=== PATIENT | male | born 1940 | race Caucasian/White ===

== ENCOUNTER 2018-03-17 06:55 | Inpatient (IN) | payer BC ==
[~2018-03-17 06:55] MED LIST: CEFAZOLIN 2 Gram 2 GM/50 ML BAG IVPB ONE; CELECOXIB 100 MG CAPSULE PO ONE; FAMOTIDINE 20MG TABLET PO ONE; MECLIZINE 25 MG TABLET PO ONE; METOCLOPRAMIDE 10 MG TABLET PO ONE; VANCOMYCIN HCL 1,000 MG in DEXTROSE 5 % IN WATER 250 ML IVPB ONE
[2018-03-17 07:53] LABS: ABO GROUP A; ANTIBODY SCREEN NEGATIVE (NEGATIVE); RH TYPE NEGATIVE
[2018-03-17] MEDS ORDERED: ONDANSETRON HCL IV 4 MG/2 ML VIAL IVP PRN (10:53)
[2018-03-17] MEDS ORDERED: BISACODYL 10 MG SUPP RC PRN (10:53)
[2018-03-17] MEDS ORDERED: DIPHENHYDRAMINE HCL 25 MG CAPSULE PO PRN (10:53)
[2018-03-17] MEDS ORDERED: ACETAMINOPHEN W/ CODEINE 300MG/30MG TABLET PO PRN (10:53)
[2018-03-17] MEDS ORDERED: NALOXONE 0.4 MG/1 ML VIAL IVP PRN (10:53)
[2018-03-17] MEDS ORDERED: HYDROMORPHONE HCL 2 MG/ML VIAL IM PRN (10:53)
[2018-03-17] MEDS ORDERED: KETOROLAC 30 MG/ML VIAL IVP PRN ×2 (10:53)
[2018-03-17] MEDS ORDERED: ACETAMINOPHEN W/ CODEINE 300MG/60MG TABLET PO PRN ×2 (10:53)
[2018-03-17] MEDS ORDERED: MAGNESIUM HYDROXIDE 30 ML UDC PO PRN (10:53)
[2018-03-17] MEDS ORDERED: ZOLPIDEM TARTRATE 5 MG TABLET PO PRN (10:53)
[2018-03-17] MEDS ORDERED: AL HYDROX/MAG HYDROX 30ML UD PO PRN (10:53)
[2018-03-17] MEDS ORDERED: HYDROCODONE/APAP 10/325 TABLET PO PRN ×2 (10:53)
[2018-03-17] MEDS: HUMULIN R 100 UNIT/ML VIAL SQ SCH ×2 (12:55→17:27)
[2018-03-17] MEDS: POTASSIUM CHLORIDE/D5-0.9%NACL 20 MEQ/1,000 ML BAG IV SCH ×2 (13:02→22:25)
[2018-03-17] MEDS ORDERED: MIDAZOLAM HCL 2MG/2ML VIAL IV ONE (14:00)
[2018-03-17] MEDS ORDERED: PROPOFOL 10 MG/ML VIAL IV ONE (14:00)
[2018-03-17] MEDS ORDERED: EPHEDRINE SULFATE 50 MG/ML ML IV ONE (14:00)
[2018-03-17] MEDS ORDERED: DIPHENHYDRAMINE HCL IV 50 MG/ML VIAL IVP ONE (14:00)
[2018-03-17] MEDS ORDERED: FENTANYL PF 100MCG/2ML VIAL IV ONE (14:00)
[2018-03-17] MEDS ORDERED: LIDOCAINE 2% MDV (20MG/ML) 20ML VIAL IV ONE (14:00)
[2018-03-17] MEDS ORDERED: HYDROMORPHONE PF 1MG/ML **AMPULE IV ONE ×2 (14:00→15:44)
[2018-03-17] MEDS ORDERED: ONDANSETRON HCL IV 4 MG/2 ML VIAL IVP ONE ×2 (14:00→16:15)
[2018-03-17] MEDS ORDERED: PHENYLEPHRINE HCL 10 MG/ML VIAL IVP ONE (14:00)
--- NOTE | 2018-03-17 15:24 | Rehab Evaluation ---
Patient Information - Patient Information Diagnosis: DJD R Knee Ordered Treatment: PT Evaluate and Treat Status: Initial Evaluation Surgery: Yes (R TKA) Date of Surgery: 03/17/18 Past Medical/Surgical Hx: PAST MEDICAL/SURGICAL HISTORY Past Surgical History bilat cats triple bypass cardiac 2013 left RTC repair left shoulder replacement 2013 melenoma right forearm lumbar sx a long time ago bilat CTR c scope PMH - Respiratory Hx Respiratory Disorders Yes Hx Asthma No Hx Bronchitis No Hx Chronic Obstructive No Pulmonary Disease (COPD) Hx Dyspnea No Hx Pneumonia No Hx Pulmonary Embolism No Hx Sleep Apnea Yes Hx Tuberculosis No Hx of CPAP Yes Hx of URI No Hx of SOB Yes: with exertion PMH - Cardiovascular Hx Cardiovascular Disorders Yes Hx Abnormal EKG Yes Hx Cardiac Catheterization Yes Hx Chest Pain No Hx Congestive Heart Failure No Hx Deep Vein Thrombosis No Hx Edema Yes: bilat LE Hx Heart Attack No: denies Hx Hypertension Yes: on meds good control Hx Hypotension No Hx Irregular Heartbeat No Hx Palpitations No Hx Pacemaker/Defibrillator No Hx Vascular Disease Yes Hx Coronary Artery Disease Yes Hx Coronary Artery Bypass Yes: triple 2013 Graft Exercise Tolerance Poor Hx Transient Ischemic Attacks No (TIA) PMH - Neuro Hx Neurological Disorders Yes Hx Brain Tumor No Hx Cerebrovascular Accident No Hx Dementia Yes: mild forgetful Hx Dizziness Yes: when standing after sitting Hx Headaches No Hx Neuropathy Yes: LE's Hx Parkinson's Disease No Hx Seizures No Hx Speech Problem No Hx Syncope No Hx Transient Ischemic Attacks No (TIA) Hx Weakness Yes: legs PMH - GI Hx Gastrointestinal Disorders Yes Hx Abdominal Pain No Hx Celiac Disease No Hx Crohn's Disease No Hx Diverticulitis No Hx Gastrointestinal Bleed No Hx Gastroesophageal Reflux No Hx Hepatitis/Jaundice No Hx Hiatal Hernia No Hx Irritable Bowel No Hx Liver Disease No Hx Nausea/Vomiting No Hx Obstructive Bowel No Hx Pancreatitis No Hx Rectal Bleeding No Hx Ulcer No Hx Weight Loss/Weight Gain No PMH - Hx Genitourinary Disorders Yes Hx Bladder Problem Yes: incontinence at night Hx Dialysis No Hx Kidney Stones No Hx Prostate Problems Yes: enlarged Hx Renal Disease No Hx Urinary Tract Infection No PMH - Endocrine Hx Endocrine Disorders Yes Hx Diabetes Yes: onset several years ago started out on orals 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 Comment: 120's - 140's A1C below 7 PMH - Musculoskeletal Hx Musculoskeletal Disorders Yes Hx Arthritis Yes Hx Back Injury No Hx Fibromyalgia No Hx Gout No Hx Musculoskeletal Disease No Hx Osteoporosis No PMH - Psych Hx Psychiatric Problems Yes Hx Anxiety No Hx Behavior Problems No Hx Depression Yes: mild Hx Emotional Abuse No Hx Sexual Abuse No Hx Suicide Attempt No Major Depressive Episode No Feelings of Hopelessness No PMH - Hematology/Oncology Hx Hematology/Oncology Yes Disorders Hx Anemia No Hx Blood Disorders No Hx Bruising No Hx Cancer Yes: melanoma right forearm Hx Chemotherapy No Hx Radiation Therapy No Hx Clotting Problems No Hx Sickle Cell Disease No Hx Unexplained Bleeding No Hx Blood Transfusion Reaction No Social History: Detail (The patient lives in a single home with his spouse, and the home has one step to enter with rails on both sides. The patient has a walk- in shower with grab bars and hand-held shower head. The toilet is elevated with grab bars. The patient stated that he has railings on each side of the toilet. The patient is using a standard walker for ambulation activities.) Precautions: [place], Other (WBAT on R) - Time With Patient Total Time Spent With Patient (Min): 30 Treatment Procedures: Detail (PT Initial Evaluation) Subjective Information - Subjective Information Per Patient (The patient has some nausea and dizziness currently. Had some reports of pain in the R LE) Objective Data - Pain Pain Present: Yes Pain Intensity: 8 (Right LE and Foot) Pain Scale Used: Numeric (1 - 10) - Mental Status Patient Orientation: Oriented x3 - ROM Not within normal limits (WNL on L LE. R Hip and Ankle. R Knee is limited as expected s/p R TKA) - Strength/Tone Not within normal limits (Within functional limits for activities completed at initial evaluation. R Knee was limited as expected s/p R TKA) - Bed Mobility Independent (The patient was independent with sit to supine and supine to sit. He required mod. assist x 2 to scoot up in bed.) - Transfers Independent (The patient was independent with sit to stand and stand to sit. The patient required supervision with transfer to and from the toilet.) - Balance Balance Sitting: Good (No LOB with sitting at the bedside.) Balance Standing: Good (Had no LOB with immediate standing at the bedside after transferring from sit to stand. Had no LOB with gait activities.) - Sensation Intact - Gait Detail (The patient was able to ambulate from the bedside to the restroom ( about 25 feet total). He was WBAT on R and used 2WW. He required supervision/ CGA x 1. Further ambulation was not completed, as stairs were not assessed.) Therapy Assessment - Therapy Assessment Detail (The patient was limited in strength and ROM in the R knee. He was independent with bed mobility and transfers, but required supervision for gait activities. Ability to ascend/descend stairs was not assessed at this time. The patient should progress well with inpatient therapy.) Problem List - Problem List Physical Therapy Problem List: Detail (1) Decreased ROM and Strength in R Knee as expected s/p R TKA 2) Unable to ambulate longer household distances 3) Ability to complete stairs not assessed) Goals - Goals Physical Therapy Goals: 1) The patient will be independent in HEP to increase ROM and strength in R Knee improve transfer and gait skills. 2) The patient will be able to ascend/descend 3 stairs with supervision to safely enter the home. 3) The patient will be able to ambulate longer household distances for increased safety in the home. Prognosis - Prognosis Good Plan - Plan Physical Therapy Plan: The patient will be seen 1-2x/day M-F for gait training and LE strengthening/ROM activities until d/c from [facility].
[2018-03-17] MEDS ORDERED: BUPIVACAINE 0.5% W/EPI MPF 30 ML VIAL IVP ONE (15:44)
[2018-03-17] MEDS ORDERED: VANCOMYCIN HCL 1 GM VIAL IVPB ONE (15:44)
[2018-03-17] MEDS ORDERED: TRANEXAMIC ACID 1,000 MG/10 ML ML IV ONE ×2 (15:44→15:48)
[2018-03-17] MEDS ORDERED: 0.9 % SODIUM CHLORIDE 10 ML VIAL IVP ONE (15:48)
[2018-03-17] MEDS: CEFAZOLIN 2 Gram 2 GM/50 ML BAG IVPB SCH (16:52)
--- NOTE | 2018-03-17 20:30 | Operative Note ---
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 PROCEDURE: Cemented right total knee arthroplasty using [employer] II components, with a size 8 cemented [place] femur, size 8 stem tibial baseplate, a 9 mm lipped tibial insert, and a 35 mm all-plastic patella. STAFF SURGEON: LATANYA HONG M.D. ANESTHESIA: SPINAL. PREPARATION: CHLORAPREP. INDIVIDUAL CONSIDERATIONS: NONE. PROCEDURE: The patient was taken to the Operating Room and placed supine on the operating table. He had the successful induction with spinal anesthetic. His right lower extremity was prepped and draped in the usual fashion. The patient had a midline approach to the knee. Sharp dissection carried down through the skin and subcutaneous tissues. Small veins were coagulated with a Bovie. The tourniquet was inflated to 250 mmHg. A medial arthrotomy was performed. The patella was everted and the knee was flexed. He had exposed bone pretty much everywhere with bone loss. The fat pad was resected, ACL was sacrificed, provisional anterior meniscectomies were performed and the capsule was released from the medial proximal tibia. The initial femoral elevator pilot hole was then made freehand. The intramedullary femoral cutting jig was placed. It was cut in 7.0 degrees of valgus and adjusted for rotation and secured with pins for a 10 mm resection. The initial transverse cut was then made. The skin guide was placed in the anterior and posterior elevator pilot holes. It was found that a size 8 would be appropriate but I needed to translate it anteriorly 2 mm. The anterior and posterior cuts were made, osteophytes were removed, and a size 8 trial was placed and found to fit well. The tibia was brought forward and the remainder of the meniscal remnants were removed with a Bovie. The extra-articular tibial cutting jig was placed. It was cut in neutral with a 3-degree AP slope. Care was taken to adjust for rotation and flexion using the extra-articular alignment guide and bony landmarks. It was set for a 9 mm resection, keyed off the high lateral side, and secured with pins. When cutting the tibia, care was taken to preserve the PCL insertion on the tibia. Osteophytes were removed and I was able to easily fit a size 8 baseplate trial. With a 9 mm trial and the femoral trial, there was excellent motion and stability, ligamentous balance, rotation, and alignment were thought to be normal. The femoral elevator pilot holes were impacted and the triflange tibial stamp was impacted and these trial components were removed. The patient had a very thick patella and roughly 9 mm of bone was removed with an oscillating saw. I could easily fit a 35 patella and the three elevator pilot holes were drilled. The tourniquet was let down to get bleeders posteriorly and then placed back up again. The knee was then thoroughly irrigated out with pulsatile Betadine and saline to remove any visual or palpable debris. Bony surfaces were then dried. A size 8 stem tibial baseplate was cemented into place, followed by impaction of a 9 mm lipped tibial insert, followed by cementing in the size 8 [place] femur, followed by cementing in the 35 mm patella. Implant surfaces were compressed, excess cement was removed, and after the cement had set, there was excellent motion and stability, ligamentous balance, rotation and alignment and patellofemoral tracking were normal. No lateral release was required. After again thorough irrigation, the tourniquet was let down and hemostasis was obtained with the Bovie. The skin and periosteum were then infiltrated with 30 mL of 0.5% Marcaine with Epinephrine. The capsule was then closed with a running #2 Quill, the subcutaneous was closed in layers with 0 Quill, and the skin was closed with carlo. The patient did receive a gram of tranexamic acid IV preoperatively. I mixed a gram of tranexamic acid with 30 mL of saline and injected it into the knee through a sterile #18 gauge needle and a sterile [place] compressive Aquacel-type dressing was applied. The patient tolerated the procedures well. Needle and sponge counts were correct. Estimated blood loss was minimal and he was taken back to Recovery in good condition. There were no complications. cc: Dr. Fei Currie JOB NUMBER: [id number] MTDD
[2018-03-17] MEDS ORDERED: METOPROLOL TART 50 MG TABLET PO SCH (22:00)
[2018-03-17] MEDS ORDERED: OXYBUTYNIN CHLORIDE 5MG TABLET PO SCH (22:00)
[2018-03-17] MEDS: SIMVASTATIN 20 MG TABLET PO SCH (22:12)
[2018-03-17] MEDS: ACETAMINOPHEN 325 MG TAB PO PRN (22:12)
[2018-03-17] MEDS: METOPROLOL TART 50 MG TABLET PO SCH (22:12)
[2018-03-17] MEDS: TAMSULOSIN HCL 0.4 MG CAP.ER.24H PO SCH (22:13)
[2018-03-17] MEDS: DULOXETINE HCL 30 MG CAPSULE.DR PO SCH (22:13)
[2018-03-17] MEDS: DOCUSATE SODIUM 100 MG CAPSULE PO SCH (22:13)
[2018-03-17] MEDS: METFORMIN 500 MG TABLET PO SCH (22:13)
[2018-03-17] MEDS: LEVEMIR FLEXTOUCH 100 UNIT/ML INSULIN PEN SQ SCH (22:15)
[2018-03-18] MEDS: CEFAZOLIN 2 Gram 2 GM/50 ML BAG IVPB SCH ×2 (01:32→08:27)
[2018-03-18 06:44] LABS: HEMATOCRIT 30.7 % (42.0-52.0); HEMOGLOBIN 9.4 gm/dl (14.0-18.0)
[2018-03-18 06:59] LABS: BLOOD UREA NITROGEN 20 mg/dL (8-23); CREATININE 0.9 mg/dL (0.7-1.2); EST GLOMERULAR FILTRATION RATE > 60 mL/min; GLUCOSE,RANDOM 149 mg/dL (74-109)
[2018-03-18] MEDS: HUMULIN R 100 UNIT/ML VIAL SQ SCH ×3 (08:15→17:42)
[2018-03-18] MEDS: POTASSIUM CHLORIDE/D5-0.9%NACL 20 MEQ/1,000 ML BAG IV SCH (08:28)
--- NOTE | 2018-03-18 09:55 | Physician Progress Note ---
Subjective - Date Date of Physician Progress Note: 03/18/18 Objective - Vital Signs Vital Signs: Vital Signs - Last 24 Hrs Temp Pulse Pulse Resp BP BP Pulse Ox 03/18/18 08:41 99.3 F 81 18 163/76 96 03/18/18 08:02 18 03/18/18 05:20 96 03/18/18 05:00 98.1 F 74 18 144/64 74 L 03/18/18 01:00 97.9 F 82 20 132/67 97 03/17/18 22:43 106 H 94 L 03/17/18 22:40 84 L 03/17/18 21:55 113 H 78 L 03/17/18 21:34 97.7 F 112 H 20 126/82 93 L 03/17/18 21:30 20 80 L 03/17/18 21:00 18 03/17/18 17:00 97.7 F 105 H 18 138/64 92 L 03/17/18 14:20 97.9 F 96 H 18 151/81 92 L 03/17/18 14:03 93 H 16 92 L 03/17/18 13:20 97.7 F 88 18 159/65 94 L 03/17/18 12:50 84 18 175/86 94 L 03/17/18 12:20 89 18 169/89 95 03/17/18 12:05 89 18 167/68 94 L 03/17/18 11:55 18 03/17/18 11:50 81 18 150/52 96 03/17/18 11:35 97.7 F 80 18 184/82 94 L Assessment and Plan - Assessment and Plan (1) Encounter for consultation Current Visit: Yes Status: Acute Base Code: Z71.9 - COUNSELING, UNSPECIFIED Comment: 03/18/18 - Dr alston requested inpt consult for pt regarding DM control and other rounding needs. _Post Op day 1 for LTKA -during the shift production supervisor, nursing reported pt to have increased confusion and O2 needs. Pulled off CPAP and required venti mask -this AM pt is on 4+ L NC, sating high 90's but drops to high 80's with activity , A&Ox4, no acute distress. Pt has diminished lung sounds, weak inspiration but stronger expiration -BNP 1530, Consulted with Dr alston and changing PO lasix to IVP 20mg BID for 2 days, return to PO day 3 -monitor output- pt req webb after inability to urinate, H/O prostate disease -monitor lytes -CXR ordered and pending -nursing staff encouraging ICS and cough/deep breathing -PT/OT at bedside assisting pt at this time -will be availabe if further assistance is needed -Dr Alston aware and approved POC Results - Labs Result Diagrams: 03/18/18 06:16 03/18/18 06:16 Labs Last 24 Hours: Laboratory Results - last 24 hr 03/17/18 03/18/18 03/18/18 17:27 06:16 06:16 Hgb 9.4 L Hct 30.7 L Sodium 140 Potassium 4.2 Chloride 103 Carbon Dioxide 25.0 Anion Gap 12.0 BUN 20 Creatinine 0.9 Estimated GFR > 60 POC Glucose 177 H Random Glucose 149 H Calcium 8.6 L NT-Pro-B Natriuret Pep 03/18/18 03/18/18 06:16 07:30 Hgb Hct Sodium Potassium Chloride Carbon Dioxide Anion Gap BUN Creatinine Estimated GFR POC Glucose 208 H Random Glucose Calcium NT-Pro-B Natriuret Pep 1530.00 H DVT/PE Assessment - Risk for VTE Risk for VTE: No Risk Level: High Risk Assessment Date: 03/18/18 (completed by Dr Alston) Risk Assessment Time: 09:55 (completed by Dr Alston) VTE Orders Placed or Will Be Placed: Yes - Active Medicaitons Current Medications: Current Medications Acetaminophen (Tylenol 325mg) 650 mg PO Q4H PRN PRN Reason: Fever GT 101/Headache Last Admin: 03/17/18 22:12 Dose: 650 mg Acetaminophen/Codeine Phosphate (Tylenol #3) 2 udtab PO Q4H PRN PRN Reason: Pain - Mild to Moderate Acetaminophen/Codeine Phosphate (Acetaminophen-Cod #4 Tablet) 1 udtab PO Q4HR PRN PRN Reason: Pain - Moderate (5-7) Acetaminophen/Codeine Phosphate (Acetaminophen-Cod #4 Tablet) 2 udtab PO Q4HR PRN PRN Reason: Pain - Severe (8-10) Hydrocodone Bitart/Acetaminophen ([place] 10mg/325mg) 2 each PO Q4H PRN PRN Reason: Pain - Mild to Moderate Hydrocodone Bitart/Acetaminophen ([place] 10mg/325mg) 1 each PO Q4H PRN PRN Reason: Pain - Mild to Moderate Al Hydroxide/Mg Hydroxide (Maalox) 30 ml PO Q6H PRN PRN Reason: Indigestion/Heartburn Aspirin (Ecotrin (Ec)) 81 mg PO DAILY [facility] Benazepril HCl (Lotensin) 40 mg PO DAILY [facility] Bisacodyl (Dulcolax) 10 mg RC DAILY PRN PRN Reason: CONSTIPATION Diphenhydramine HCl (Benadryl Capsule) 50 mg PO Q6H PRN PRN Reason: ITCHING Last Admin: 03/17/18 13:02 Dose: 50 mg Docusate Sodium (Colace) 100 mg PO BID [facility] Last Admin: 03/17/18 22:13 Dose: 100 mg Duloxetine HCl (Cymbalta) 60 mg PO DAILY [facility] Duloxetine HCl (Cymbalta) 30 mg PO QHS [facility] Last Admin: 03/17/18 22:13 Dose: 30 mg Ferrous Sulfate (Iron) 325 mg PO DAILY [facility] Furosemide (Lasix) 40 mg PO DAILY [facility] Furosemide (Lasix Iv) 20 mg IVP BIDDIUR [facility] Stop: 03/19/18 16:00 Hydrochlorothiazide (Hctz 12.5mg) 12.5 mg PO DAILY [facility] Hydromorphone HCl (Dilaudid) 2 mg IM Q3H PRN PRN Reason: Pain - Severe (8-10) Potassium Chloride/Dextrose/Sod Cl () 20 meq in 1,000 mls @ 125 mls/hr IV Q8H [facility] Last Admin: 03/18/18 08:28 Dose: 125 mls/hr Insulin Detemir (Levemir Flextouch) 35 unit SQ BID [facility] Last Admin: 03/17/18 22:15 Dose: 35 unit Insulin Human Regular (Humulin R) 0 unit SQ TIDAC [facility] PRN Reason: Protocol Last Admin: 03/18/18 08:15 Dose: 2 unit Ketorolac Tromethamine (Toradol) 15 mg IVP ONCE PRN PRN Reason: Pain - Moderate (5-7) Magnesium Hydroxide (Milk Of Magnesium) 30 ml PO DAILY PRN PRN Reason: Constipation Metformin HCl (Glucophage Ir) 1,000 mg PO BID [facility] Last Admin: 03/17/18 22:13 Dose: 1,000 mg Metoprolol Tartrate (Lopressor) 100 mg PO BID [facility] Last Admin: 03/17/18 22:12 Dose: 100 mg Naloxone HCl (Narcan) 0.4 mg IVP ONCE PRN PRN Reason: RR less then 8 or unresponsive Ondansetron HCl (Zofran) 4 mg IVP Q4H PRN PRN Reason: NAUSEA Oxybutynin Chloride (Ditropan) 10 mg PO QHS [facility] Last Admin: 03/17/18 22:13 Dose: 10 mg Potassium Chloride (Klor-Con) 10 meq PO DAILY [facility] Rivaroxaban (Xarelto) 10 mg PO Q24H [facility] Simvastatin (Zocor) 40 mg PO QHS [facility] Last Admin: 03/17/18 22:12 Dose: 40 mg Tamsulosin HCl (Flomax) 0.8 mg PO QHS [facility] Last Admin: 03/17/18 22:13 Dose: 0.8 mg Tramadol HCl (Ultram) 100 mg PO Q4H PRN PRN Reason: Pain - Mild to Moderate Vitamin D (Vitamin D3) 2,000 unit PO DAILY [facility] Zolpidem Tartrate (Ambien) 5 mg PO QHS PRN PRN Reason: INSOMNIA AMI Plan - Labs Result Diagrams: 03/18/18 06:16 03/18/18 06:16
[2018-03-18] MEDS ORDERED: METOPROLOL TART 50 MG TABLET PO SCH (10:00)
[2018-03-18] MEDS ORDERED: FUROSEMIDE 40 MG TABLET PO SCH (10:00)
--- NOTE | 2018-03-18 10:07 | Rehab Evaluation ---
Patient Information - Patient Information Diagnosis: DJD R Knee Ordered Treatment: OT Evaluate and Treat Status: Initial Evaluation Surgery: Yes (R TKA) Date of Surgery: 03/17/18 Past Medical/Surgical Hx: PAST MEDICAL/SURGICAL HISTORY Past Surgical History bilat cats triple bypass cardiac 2013 left RTC repair left shoulder replacement 2013 melenoma right forearm lumbar sx a long time ago bilat CTR c scope PMH - Respiratory Hx Respiratory Disorders Yes Hx Asthma No Hx Bronchitis No Hx Chronic Obstructive No Pulmonary Disease (COPD) Hx Dyspnea No Hx Pneumonia No Hx Pulmonary Embolism No Hx Sleep Apnea Yes Hx Tuberculosis No Hx of CPAP Yes Hx of URI No Hx of SOB Yes: with exertion PMH - Cardiovascular Hx Cardiovascular Disorders Yes Hx Abnormal EKG Yes Hx Cardiac Catheterization Yes Hx Chest Pain No Hx Congestive Heart Failure No Hx Deep Vein Thrombosis No Hx Edema Yes: bilat LE Hx Heart Attack No: denies Hx Hypertension Yes: on meds good control Hx Hypotension No Hx Irregular Heartbeat No Hx Palpitations No Hx Pacemaker/Defibrillator No Hx Vascular Disease Yes Hx Coronary Artery Disease Yes Hx Coronary Artery Bypass Yes: triple 2013 Graft Exercise Tolerance Poor Hx Transient Ischemic Attacks No (TIA) PMH - Neuro Hx Neurological Disorders Yes Hx Brain Tumor No Hx Cerebrovascular Accident No Hx Dementia Yes: mild forgetful Hx Dizziness Yes: when standing after sitting Hx Headaches No Hx Neuropathy Yes: LE's Hx Parkinson's Disease No Hx Seizures No Hx Speech Problem No Hx Syncope No Hx Transient Ischemic Attacks No (TIA) Hx Weakness Yes: legs PMH - GI Hx Gastrointestinal Disorders Yes Hx Abdominal Pain No Hx Celiac Disease No Hx Crohn's Disease No Hx Diverticulitis No Hx Gastrointestinal Bleed No Hx Gastroesophageal Reflux No Hx Hepatitis/Jaundice No Hx Hiatal Hernia No Hx Irritable Bowel No Hx Liver Disease No Hx Nausea/Vomiting No Hx Obstructive Bowel No Hx Pancreatitis No Hx Rectal Bleeding No Hx Ulcer No Hx Weight Loss/Weight Gain No PMH - Hx Genitourinary Disorders Yes Hx Bladder Problem Yes: incontinence at night Hx Dialysis No Hx Kidney Stones No Hx Prostate Problems Yes: enlarged Hx Renal Disease No Hx Urinary Tract Infection No PMH - Endocrine Hx Endocrine Disorders Yes Hx Diabetes Yes: onset several years ago started out on orals 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 Comment: 120's - 140's A1C below 7 PMH - Musculoskeletal Hx Musculoskeletal Disorders Yes Hx Arthritis Yes Hx Back Injury No Hx Fibromyalgia No Hx Gout No Hx Musculoskeletal Disease No Hx Osteoporosis No PMH - Psych Hx Psychiatric Problems Yes Hx Anxiety No Hx Behavior Problems No Hx Depression Yes: mild Hx Emotional Abuse No Hx Sexual Abuse No Hx Suicide Attempt No Major Depressive Episode No Feelings of Hopelessness No PMH - Hematology/Oncology Hx Hematology/Oncology Yes Disorders Hx Anemia No Hx Blood Disorders No Hx Bruising No Hx Cancer Yes: melanoma right forearm Hx Chemotherapy No Hx Radiation Therapy No Hx Clotting Problems No Hx Sickle Cell Disease No Hx Unexplained Bleeding No Hx Blood Transfusion Reaction No Premorbid Status: Detail (Not obtained d/t cognition.) Social History: Detail (The patient lives in a single story home with his spouse , with one step to enter and 1 hand rail. The patient has a walk-in shower with grab bars, shower chair, and hand-held shower head. The toilet is elevated with grab bars. The patient stated that he has railings on each side of the toilet. The patient is using a standard walker for ambulation activities. The pt. uses a radiation officer to assist with ADL's, and has 2 sons that live nearby to assist PRN, per pt. report.) Precautions: Trail, Other (WBAT on R. Pt. demo. mild cognitive deficits during OT eval.) - Time With Patient Total Time Spent With Patient (Min): 30 Objective Data - Pain Pain Present: Yes (07/10 pain RLE. Pt. reported nursing staff had just administered pain medication prior to eval session.) - Mental Status Patient Orientation: Person (Pt. was aware of who he was and that he was in the hospital and why. However, he demo. mild cognitive deficits AEB requiring multiple repetition of simple step directions with extra processing time provided, and STM issues.) - Visual Perception Appears within normal limits for therapeutic activities - ROM Not within normal limits (Pt. reported hx of L shd replacement. BUE AROM was poor: Shd flex approx. 100, abd 70. Pt. used extreme compensatory postures and demo. scapular weakness. In general, pt's posture has forward rounded shoulders. BUE elbow flex, ext, wrist flex, ext WFL. L sup approx. 40, pro WFL. R sup and pro WFL.) - Strength/Tone Not within normal limits (Pt. demo. BUE weakness; in general, LUE was weaker than R. MMT RUE shd flex 4/5, abd 4-/5, biceps 4/5, triceps 4-/5. LUE shd flex 4 -/5, abd 3+/5, biceps 4-/5, triceps 3+/5. Pt. demo. moderate difficulty with the ability to use BUE for support (i.e. pushing up out of bed, t/f's, etc.).) - Bed Mobility Needs Assist (Pt. required mod A x2 to transition from supine to sit, with mod VC to engage BUE for support. Bed rails were available but pt. did not use them , even with VC to use if needed.) - Transfers Needs Assist (Sit<>stand from EOB to walker mod A x2. Pt. initially demo. posterior lean, but almost lost balance forward once standing (was leaning anteriorly and required VC's to stand straight/tall).) - Balance Balance Sitting: Fair (Pt. experienced LOB x2 seated EOB without use of UE support, but was able to recover Ind.) Balance Standing: Fair (CGA while standing to prevent LOB. Pt. exhibited mild sway, but denied feeling dizzy.) - Sensation Deficit (Pt. stated he has peripheral neuropathy in BUE and feet. Numbness in Jason. hands comes and goes. Pt. reported hands have gone numb when using walker. Educ. was provided in methods to build up walker handles to prevent numbness; pt. verbalized understanding.) - ADL's/IADL's Detail (Pt. required max VC to participate in OT eval, and declined to perform functional activities, such as dressing, functional mobility to the bathroom, or toilet t/f.) Therapy Assessment - Therapy Assessment Detail (Pt. would benefit from skilled OT services during in-pt. hospital stay. Pt. would benefit from additional OT services (such as a VALERIE) to decrease fall risk, maximize safety and independence with ADL's, and improve BUE strength and AROM for functional activities. Pt. may have been under the influence of medication side-effects and/or was experiencing mild cognitive deficits.) Problem List - Problem List Physical Therapy Problem List: Detail (1) Decreased ROM and Strength in R Knee as expected s/p R TKA 2) Unable to ambulate longer household distances 3) Ability to complete stairs not assessed) Goals - Goals Physical Therapy Goals: 1) The patient will be independent in HEP to increase ROM and strength in R Knee improve transfer and gait skills. 2) The patient will be able to ascend/descend 3 stairs with supervision to safely enter the home. 3) The patient will be able to ambulate longer household distances for increased safety in the home. Occupational Therapy Goals: 1) Pt. will participate in the evaluation of at least one ADL skill. 2) Maximize BUE strength and AROM for functional activities. 3) Pt. will demo. functional mobility from EOB to toilet with SBA. Prognosis - Prognosis Good (For goals written to improve independence with functional activities and maximize safety.) Plan - Plan Physical Therapy Plan: The patient will be seen 1-2x/day M-F for gait training and LE strengthening/ROM activities until d/c from [facility]. Occupational Therapy Plan: Pt. will be seen 2-4x's/week M-F during typical business hours during his acute medical stay.
--- NOTE | 2018-03-18 10:07 | Physical Therapy Tx Note ---
Physical Therapy Tx Note - Treatment Note Tolerated: Fair Total Time Spent With Patient: 20 Physical Therapy Tx Note: Detail (Patient was sitting at the edge of the bed with occupational therapy upon ORDER MANAGER arrival. Patient transferred sit to and from stand mod assist x2. Patient stood for 1 minute at walker. Patient performed the following exercises x10 reps each seated at the edge of bed: heel slides, marching, heel raises, toe raises, and quad sets. Patient tolerated treatment well. Patient required verbal cueing to kick out right leg before sitting. Patient was left seated at edge of bed for radiology to perform chest x-ray.) Physical Therapy Problem List: Detail (1) Decreased ROM and Strength in R Knee as expected s/p R TKA 2) Unable to ambulate longer household distances 3) Ability to complete stairs not assessed) Physical Therapy Goals: 1) The patient will be independent in HEP to increase ROM and strength in R Knee improve transfer and gait skills. 2) The patient will be able to ascend/descend 3 stairs with supervision to safely enter the home. 3) The patient will be able to ambulate longer household distances for increased safety in the home. Prognosis: Good Physical Therapy Plan: The patient will be seen 1-2x/day M-F for gait training and LE strengthening/ROM activities until d/c from [facility].
[2018-03-18] MEDS: DOCUSATE SODIUM 100 MG CAPSULE PO SCH ×2 (10:12→21:56)
[2018-03-18] MEDS: DULOXETINE HCL 30 MG CAPSULE.DR PO SCH ×2 (10:12→21:56)
[2018-03-18] MEDS: ASPIRIN 81 MG TABEC PO SCH (10:12)
[2018-03-18] MEDS: METFORMIN 500 MG TABLET PO SCH ×2 (10:12→21:59)
[2018-03-18] MEDS: FERROUS SULFATE 325 MG TAB PO SCH (10:13)
[2018-03-18] MEDS: HYDROCHLOROTHIAZIDE 12.5 MG CAPSULE PO SCH (10:13)
[2018-03-18] MEDS: RIVAROXABAN 10 MG TABLET PO SCH (10:13)
[2018-03-18] MEDS: BENAZEPRIL 20 MG TABLET PO SCH (10:13)
[2018-03-18] MEDS: METOPROLOL TART 50 MG TABLET PO SCH ×2 (10:13→21:55)
[2018-03-18] MEDS: CHOLECALCIFEROL 1,000 UNIT TABLET PO SCH (10:13)
[2018-03-18] MEDS: POTASSIUM CHLORIDE 10 MEQ TAB PO SCH (10:13)
[2018-03-18] MEDS: LEVEMIR FLEXTOUCH 100 UNIT/ML INSULIN PEN SQ SCH ×2 (10:14→22:02)
[2018-03-18] MEDS: FUROSEMIDE IV 20MG/2ML VIAL IVP SCH ×2 (10:14→15:49)
[2018-03-18] MEDS: TRAMADOL HCL 50 MG TABLET PO PRN ×2 (11:42→18:03)
--- NOTE | 2018-03-18 16:02 | Physical Therapy Tx Note ---
Physical Therapy Tx Note - Treatment Note Tolerated: Good Total Time Spent With Patient: 30 Physical Therapy Tx Note: Detail (Patient was supine in bed upon TOWN JUSTICE arrival. Patient transferred supine to sit min assist x1, CGA x1. Patient transferred sit to and from stand min assist x1, CGA x1. Patient ambulated 3 steps CGA x1 with wheeled walker. Unable to walk further due to length of oxygen tubing. Patient performed the following exercises x5-10 reps each seated on edge of bed : quad sets, glut squeezes, heel raises, toe raises, heel slides, marching, hamstring sets, and seated isometric hip abduction. Patient transferred sit to supine min assist x2 to lift LEs. Patient scooted up in bed max assist x2. Patient required verbal cueing for sit to and from stand transfer, and sit to supine transfer. Patient required verbal cueing throughout treatment for correct breathing techniques to increase O2 levels. Patient was left reclined in bed with call light within reach.) Physical Therapy Problem List: Detail (1) Decreased ROM and Strength in R Knee as expected s/p R TKA 2) Unable to ambulate longer household distances 3) Ability to complete stairs not assessed) Physical Therapy Goals: 1) The patient will be independent in HEP to increase ROM and strength in R Knee improve transfer and gait skills. 2) The patient will be able to ascend/descend 3 stairs with supervision to safely enter the home. 3) The patient will be able to ambulate longer household distances for increased safety in the home. Prognosis: Good Physical Therapy Plan: The patient will be seen 1-2x/day M-F for gait training and LE strengthening/ROM activities until d/c from [facility].
[2018-03-18] MEDS: SIMVASTATIN 20 MG TABLET PO SCH (21:54)
[2018-03-18] MEDS: TAMSULOSIN HCL 0.4 MG CAP.ER.24H PO SCH (21:55)
[2018-03-19 06:39] LABS: HEMATOCRIT 31.6 % (42.0-52.0); HEMOGLOBIN 9.8 gm/dl (14.0-18.0)
[2018-03-19 06:52] LABS: BLOOD UREA NITROGEN 20 mg/dL (8-23); CREATININE 0.8 mg/dL (0.7-1.2); EST GLOMERULAR FILTRATION RATE > 60 mL/min; GLUCOSE,RANDOM 90 mg/dL (74-109)
--- NOTE | 2018-03-19 07:18 | RADIOLOGY REPORT ---
EXAM: CHEST, TWO VIEWS HISTORY: DECREASED OXYGEN SATURATION, HYPOXIA. TECHNIQUE: AP and lateral views of the chest were obtained. Comparison: None. FINDINGS: Cardiomegaly is present. A somewhat shallow inspiration has been taken. There is some mild diffuse prominence of the pulmonary vascularity and interstitial markings. At least some of this is just due to the relatively shallow inspiration although some mild vascular congestion cannot be excluded. There is some relative elevation of the right hemidiaphragm. There is some mild focal streaky atelectasis or infiltrate in the left base. Prominent spurring in the spine. Postop left shoulder arthroplasty. No pneumothorax evident. Postop sternotomy. IMPRESSION: 1. POSTOP STERNOTOMY AND POSTOP LEFT SHOULDER ARTHROPLASTY. 2. SOMEWHAT SHALLOW INSPIRATION. 3. CARDIOMEGALY WITH SOME DIFFUSE INTERSTITIAL PROMINENCE. SOME OF THIS MAY JUST BE DUE TO THE SHALLOW INSPIRATION, BUT SOME MILD VASCULAR CONGESTION CANNOT BE EXCLUDED. 4. THERE IS ALSO SOME MILD FOCAL ATELECTASIS OR INFILTRATE IN THE LEFT BASE. 5. QUITE PROMINENT SPURRING IN THE THORACIC SPINE. JOB NUMBER: [id number] MTDD
[2018-03-19] MEDS: HUMULIN R 100 UNIT/ML VIAL SQ SCH ×3 (08:13→18:26)
[2018-03-19] MEDS: LEVEMIR FLEXTOUCH 100 UNIT/ML INSULIN PEN SQ SCH ×3 (09:25→21:23)
[2018-03-19] MEDS: METFORMIN 500 MG TABLET PO SCH ×3 (09:26→21:13)
[2018-03-19] MEDS: TRAMADOL HCL 50 MG TABLET PO PRN ×2 (09:40→19:51)
[2018-03-19] MEDS: FUROSEMIDE IV 20MG/2ML VIAL IVP SCH ×2 (09:40→17:16)
[2018-03-19] MEDS: ACETAMINOPHEN 325 MG TAB PO PRN ×2 (09:41→19:50)
[2018-03-19] MEDS: DOCUSATE SODIUM 100 MG CAPSULE PO SCH ×2 (09:42→21:11)
[2018-03-19] MEDS: DULOXETINE HCL 30 MG CAPSULE.DR PO SCH ×2 (09:43→21:12)
[2018-03-19] MEDS: HYDROCHLOROTHIAZIDE 12.5 MG CAPSULE PO SCH (09:43)
[2018-03-19] MEDS: ASPIRIN 81 MG TABEC PO SCH (09:43)
[2018-03-19] MEDS: POTASSIUM CHLORIDE 10 MEQ TAB PO SCH (09:44)
[2018-03-19] MEDS: FERROUS SULFATE 325 MG TAB PO SCH (09:44)
[2018-03-19] MEDS: BENAZEPRIL 20 MG TABLET PO SCH (09:45)
[2018-03-19] MEDS: METOPROLOL TART 50 MG TABLET PO SCH ×2 (09:45→21:15)
[2018-03-19] MEDS: RIVAROXABAN 10 MG TABLET PO SCH (09:45)
[2018-03-19] MEDS: CHOLECALCIFEROL 1,000 UNIT TABLET PO SCH (09:46)
--- NOTE | 2018-03-19 10:32 | Physical Therapy Tx Note ---
Physical Therapy Tx Note - Treatment Note Tolerated: Good Total Time Spent With Patient: 30 Physical Therapy Tx Note: Detail (Patient was reclined in bed upon HEAD CASHIER arrival. Patient was agitated today. Patient transferred supine to sit min assist x1. Patient transferred sit to and from stand min assist x1. Patient ambulated 27 feet with standard walker CGA x1 with 2L portable oxygen. Patient performed the following exercises seated in chair with 2L portable oxygen x10 reps each: ankle pumps, SLR with assist, glut squeezes, LAQ with assist, hamstring sets, and heel slides. Patient tolerated treatment well. Patient required less verbal cueing with transfers. Patient required encouragement to perform exercises. Patient was left seated in chair with 2L oxygen, nursing was notified.) Physical Therapy Problem List: Detail (1) Decreased ROM and Strength in R Knee as expected s/p R TKA 2) Unable to ambulate longer household distances 3) Ability to complete stairs not assessed) Physical Therapy Goals: 1) The patient will be independent in HEP to increase ROM and strength in R Knee improve transfer and gait skills. 2) The patient will be able to ascend/descend 3 stairs with supervision to safely enter the home. 3) The patient will be able to ambulate longer household distances for increased safety in the home. Prognosis: Good Physical Therapy Plan: The patient will be seen 1-2x/day M-F for gait training and LE strengthening/ROM activities until d/c from [facility].
--- NOTE | 2018-03-19 12:14 | Physician Progress Note ---
Subjective - Date Date of Physician Progress Note: 03/19/18 - Subjective Subjective Comment: 03/19/18- Patient states he is feeling a little better today in regards to his breathing. He is not feeling as short of breath. He was able to get out of bed and ambulate with therapy a short distance. He was a little winded after that. He denies cough, sputum production, fever, chills. He denies leg swelling, chest pain. He had his webb removed this morning and has voided 150cc of urine since. Objective - Vital Signs Vital Signs: Vital Signs - Last 24 Hrs Temp Pulse Pulse Resp BP BP Pulse Ox 03/19/18 11:12 88 131/76 03/19/18 10:05 86 18 90 L 03/19/18 09:00 18 03/19/18 06:00 82 18 182/73 93 L 03/18/18 22:00 98.7 F 88 18 163/89 93 L 03/18/18 20:47 85 18 03/18/18 20:17 93 L 03/18/18 18:58 99.1 F 89 16 152/83 90 L 03/18/18 13:59 99.1 F 75 16 130/76 97 - General General Appearance: Alert, Oriented x3, Cooperative, No acute distress - Head Head exam: Normal inspection - Eye Eye exam: Normal appearance, PERRL - Respiratory Respiratory exam: Rales (few crackles bilateral bases). negative: Respiratory distress - Cardiovascular Cardiovascular Exam: Regular rate, Normal rhythm, Normal heart sounds - GI/Abdominal GI/Abdominal exam: Soft, Normal bowel sounds. negative: Tenderness - Extremities Extremities exam: Normal inspection, Full ROM, Normal capillary refill. negative: Tenderness Assessment and Plan - Assessment and Plan (1) Encounter for consultation Current Visit: Yes Status: Acute Base Code: Z71.9 - COUNSELING, UNSPECIFIED Comment: 03/19/18- continues to improve. Weaned down to 2L via NC and satting in the low 90's on room air. Has had about 1L of urine output with IV diuresis and webb was removed this morning and has been voiding since. BG remains well controlled. BP improved following morning medications. CXR showed likely pulmonary vascular congestion with possible atelectasis vs infiltrate in the left lower lobe. No clinical symptoms of pneumonia. - Dr alston requested inpt consult for pt regarding DM control and other rounding needs. -Post Op day 2 for LTKA -continue lasix 20mg IV BID today and restart oral lasix 40mg po tomorrow. -I&O's -obtain weight daily -nursing staff encouraging ICS and cough/deep breathing -continue to wean off of oxygen as tolerating and plan for discharge tomorrow if he continues to improve. Results - Labs Result Diagrams: 03/19/18 06:28 03/19/18 06:28 Labs Last 24 Hours: Laboratory Results - last 24 hr 03/18/18 03/18/18 03/19/18 17:40 22:09 06:28 Hgb 9.8 L Hct 31.6 L Sodium Potassium Chloride Carbon Dioxide Anion Gap BUN Creatinine Estimated GFR POC Glucose 116 H 133 H Random Glucose Calcium 03/19/18 06:28 Hgb Hct Sodium 135 L Potassium 3.7 Chloride 95 L Carbon Dioxide 27.0 Anion Gap 13.0 BUN 20 Creatinine 0.8 Estimated GFR > 60 POC Glucose Random Glucose 90 Calcium 8.9 DVT/PE Assessment - Risk for VTE Risk for VTE: No Risk Level: High Risk Assessment Date: 03/18/18 (completed by Dr Alston) Risk Assessment Time: 09:55 (completed by Dr Alston) VTE Orders Placed or Will Be Placed: Yes - Active Medicaitons Current Medications: Current Medications Acetaminophen (Tylenol 325mg) 650 mg PO Q4H PRN PRN Reason: Fever GT 101/Headache Last Admin: 03/19/18 09:41 Dose: 650 mg Acetaminophen/Codeine Phosphate (Tylenol #3) 2 udtab PO Q4H PRN PRN Reason: Pain - Mild to Moderate Acetaminophen/Codeine Phosphate (Acetaminophen-Cod #4 Tablet) 1 udtab PO Q4HR PRN PRN Reason: Pain - Moderate (5-7) Acetaminophen/Codeine Phosphate (Acetaminophen-Cod #4 Tablet) 2 udtab PO Q4HR PRN PRN Reason: Pain - Severe (8-10) Hydrocodone Bitart/Acetaminophen ([place] 10mg/325mg) 2 each PO Q4H PRN PRN Reason: Pain - Mild to Moderate Hydrocodone Bitart/Acetaminophen ([place] 10mg/325mg) 1 each PO Q4H PRN PRN Reason: Pain - Mild to Moderate Al Hydroxide/Mg Hydroxide (Maalox) 30 ml PO Q6H PRN PRN Reason: Indigestion/Heartburn Aspirin (Ecotrin (Ec)) 81 mg PO DAILY [facility] Last Admin: 03/19/18 09:43 Dose: 81 mg Benazepril HCl (Lotensin) 40 mg PO DAILY [facility] Last Admin: 03/19/18 09:45 Dose: 40 mg Bisacodyl (Dulcolax) 10 mg RC DAILY PRN PRN Reason: CONSTIPATION Diphenhydramine HCl (Benadryl Capsule) 50 mg PO Q6H PRN PRN Reason: ITCHING Last Admin: 03/17/18 13:02 Dose: 50 mg Docusate Sodium (Colace) 100 mg PO BID [facility] Last Admin: 03/19/18 09:42 Dose: 100 mg Duloxetine HCl (Cymbalta) 60 mg PO DAILY [facility] Last Admin: 03/19/18 09:43 Dose: 60 mg Duloxetine HCl (Cymbalta) 30 mg PO QHS [facility] Last Admin: 03/18/18 21:56 Dose: 30 mg Ferrous Sulfate (Iron) 325 mg PO DAILY [facility] Last Admin: 03/19/18 09:44 Dose: 325 mg Furosemide (Lasix) 40 mg PO DAILY [facility] Furosemide (Lasix Iv) 20 mg IVP BIDDIUR [facility] Stop: 03/19/18 16:00 Last Admin: 03/19/18 09:40 Dose: 20 mg Hydrochlorothiazide (Hctz 12.5mg) 12.5 mg PO DAILY [facility] Last Admin: 03/19/18 09:43 Dose: 12.5 mg Hydromorphone HCl (Dilaudid) 2 mg IM Q3H PRN PRN Reason: Pain - Severe (8-10) Insulin Detemir (Levemir Flextouch) 35 unit SQ BID [facility] Last Admin: 03/19/18 09:25 Dose: Not Given Insulin Human Regular (Humulin R) 0 unit SQ TIDAC [facility] PRN Reason: Protocol Last Admin: 03/19/18 08:13 Dose: Not Given Ketorolac Tromethamine (Toradol) 15 mg IVP ONCE PRN PRN Reason: Pain - Moderate (5-7) Magnesium Hydroxide (Milk Of Magnesium) 30 ml PO DAILY PRN PRN Reason: Constipation Metformin HCl (Glucophage Ir) 1,000 mg PO BID [facility] Last Admin: 04/19/18 09:26 Dose: Not Given Metoprolol Tartrate (Lopressor) 100 mg PO BID [facility] Last Admin: 03/19/18 09:45 Dose: 100 mg Naloxone HCl (Narcan) 0.4 mg IVP ONCE PRN PRN Reason: RR less then 8 or unresponsive Ondansetron HCl (Zofran) 4 mg IVP Q4H PRN PRN Reason: NAUSEA Potassium Chloride (Klor-Con) 10 meq PO DAILY [facility] Last Admin: 03/19/18 09:44 Dose: 10 meq Rivaroxaban (Xarelto) 10 mg PO Q24H [facility] Last Admin: 03/19/18 09:45 Dose: 10 mg Simvastatin (Zocor) 40 mg PO QHS [facility] Last Admin: 03/18/18 21:54 Dose: 40 mg Tamsulosin HCl (Flomax) 0.8 mg PO QHS [facility] Last Admin: 03/18/18 21:55 Dose: 0.8 mg Tramadol HCl (Ultram) 100 mg PO Q4H PRN PRN Reason: Pain - Mild to Moderate Last Admin: 03/19/18 09:40 Dose: 100 mg Vitamin D (Vitamin D3) 2,000 unit PO DAILY [facility] Last Admin: 03/19/18 09:46 Dose: 2,000 unit Zolpidem Tartrate (Ambien) 5 mg PO QHS PRN PRN Reason: INSOMNIA AMI Plan - Labs Result Diagrams: 03/19/18 06:28 03/19/18 06:28
--- NOTE | 2018-03-19 20:14 | Discharge Summary ---
DATE OF ADMISSION: 03/17/2018 DATE OF DISCHARGE: 03/20/2018 DATE OF SURGERY: 03/17/2018 HISTORY: Mr. 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 He was admitted after a right total knee arthroplasty. Postoperatively, he had urinary retention, which responded to Grimm catheterization for just under 48 hours. He had respiratory insufficiency secondary to mild heart failure. The Medical doctors were consulted and they treated him with diuresis. They also followed him for his diabetes. His respiratory status improved with diureses. His hospital course was otherwise unremarkable. His discharge hemoglobin was 9.8. He did not require transfusion. DISCHARGE INSTRUCTIONS: The plan is to discharge him to a rehab facility. He will be maintained on Xarelto for DVT prophylaxis until Friday, the and at that point his Xarelto can be stopped and he should be maintained on a daily Aspirin for at least 15 days. If he takes it chronically, he should continue as per previous recommendations. His sutures should be removed in two weeks. He will be given Ultram for pain. He will follow-up in my office in four weeks. FINAL DIAGNOSIS/PRIMARY DIAGNOSIS: END-STAGE ARTHROSIS OF THE RIGHT KNEE. SECONDARY DIAGNOSES: 1. URINARY RETENTION, RESOLVED. 2. ACUTE OPERATIVE BLOOD LOSS ANEMIA. 3. RESPIRATORY INSUFFICIENCY SECONDARY TO MILD HEART FAILURE, RESOLVED. 4. TYPE II DIABETES, STABLE. 5. HYPERTENSION, STABLE. OPERATIONS AND PROCEDURES: CEMENTLESS RIGHT TOTAL KNEE ARTHROPLASTY. JOB NUMBER: [id number] MTDD
[2018-03-19] MEDS: SIMVASTATIN 20 MG TABLET PO SCH (21:11)
[2018-03-19] MEDS: TAMSULOSIN HCL 0.4 MG CAP.ER.24H PO SCH (21:12)
[2018-03-20] MEDS: HUMULIN R 100 UNIT/ML VIAL SQ SCH ×2 (07:44→13:02)
--- NOTE | 2018-03-20 09:17 | Physical Therapy Tx Note ---
Physical Therapy Tx Note - Treatment Note Tolerated: Good Total Time Spent With Patient: 15 Physical Therapy Tx Note: Detail (The patient was laying in bed upon arrival. The patient required mod. assist x1 with the trunk and min. assist x1 of the R LE when transferring from supine to sit. The patient then required mod. assist x 2 to transfer from sit to stand. He was able to ambulate with CGA x1 from his bedside to his doorway (about 10 feet) and was WBAT on R and used a 2WW for ambulation. He was then able to ascend/descend a single small step (onto scale for weight check this morning) with verbal cues for proper lead leg when ascending/descending. The patient was able to ambulate back to his recliner in his room and required CGA x 1 when transferring from stand to sit. The patient was left in his recliner with OT present.) Physical Therapy Problem List: Detail (1) Decreased ROM and Strength in R Knee as expected s/p R TKA 2) Unable to ambulate longer household distances 3) Ability to complete stairs not assessed) Physical Therapy Goals: 1) The patient will be independent in HEP to increase ROM and strength in R Knee improve transfer and gait skills. 2) The patient will be able to ascend/descend 3 stairs with supervision to safely enter the home. 3) The patient will be able to ambulate longer household distances for increased safety in the home. Prognosis: Moderate Physical Therapy Plan: The patient will be seen 1-2x/day M-F for gait training and LE strengthening/ROM activities until d/c from [facility].
[2018-03-20] MEDS ORDERED: FUROSEMIDE 40 MG TABLET PO SCH (10:00)
[2018-03-20] MEDS: CHOLECALCIFEROL 1,000 UNIT TABLET PO SCH (10:13)
[2018-03-20] MEDS: BENAZEPRIL 20 MG TABLET PO SCH (10:13)
[2018-03-20] MEDS: ASPIRIN 81 MG TABEC PO SCH (10:14)
[2018-03-20] MEDS: HYDROCHLOROTHIAZIDE 12.5 MG CAPSULE PO SCH (10:14)
[2018-03-20] MEDS: DOCUSATE SODIUM 100 MG CAPSULE PO SCH (10:14)
[2018-03-20] MEDS: POTASSIUM CHLORIDE 10 MEQ TAB PO SCH (10:14)
[2018-03-20] MEDS: FERROUS SULFATE 325 MG TAB PO SCH (10:14)
[2018-03-20] MEDS: TRAMADOL HCL 50 MG TABLET PO PRN (10:15)
[2018-03-20] MEDS: DULOXETINE HCL 30 MG CAPSULE.DR PO SCH (10:15)
[2018-03-20] MEDS: ACETAMINOPHEN 325 MG TAB PO PRN (10:15)
[2018-03-20] MEDS: METOPROLOL TART 50 MG TABLET PO SCH (10:16)
[2018-03-20] MEDS: METFORMIN 500 MG TABLET PO SCH ×2 (10:17→13:05)
[2018-03-20] MEDS: RIVAROXABAN 10 MG TABLET PO SCH (10:21)
--- NOTE | 2018-03-20 11:51 | Occupational Therapy Tx Note ---
Occupational Therapy Tx Note - Treatment Note Tolerated: Fair (Pt. required frequent rest breaks d/t SOB and mod VC to initiate pursed lip breathing to maintain appropriate O2 level.) Occupational Therapy Treatment Note: Detail (O: Min A bed mobility supine to sit with use of bed rails, raised bed head, and mod VC for hand placement/ directions. Mod A sit<>stand. Pt. able to follow simple directions with moderate repetition. Pt. did not require any cuing to participate in therapy today. Set-up to sponge bathe face and UB seated in chair. Mod A stand pivot t/ f chair to bedside 3-in-1 commode (pt. had just walked with PT and was SOB, lacked energy to walk to bathroom) with min A clothing mgmt. while standing. Educ. provided in use of bar waiter/waitress (pt. has one at home) and adaptive dressing techniques. Mod A to thread BLE in PJ pants and briefs while seated with use of bar waiter/waitress. Min A UB dressing to [facility] gown and don t-shirt while seated. A : Pt. would benefit from VALERIE to improve activity tolerance for completion of daily ADL routine for self-care, increased BUE strength and AROM, and to maximize safety and Ind. with ADL's. Pt. is motivated to become more independent in self-care.) Occupational Therapy Goals: 1) Pt. will participate in the evaluation of at least one ADL skill. 2) Maximize BUE strength and AROM for functional activities. 3) Pt. will demo. functional mobility from EOB to toilet with SBA. Prognosis: Good (Good for written goals.) Occupational Therapy Plan: Pt. will be seen 2-4x's/week M-F during typical business hours during his acute medical stay.
--- NOTE | 2018-03-20 11:57 | Physician Progress Note ---
Subjective - Date Date of Physician Progress Note: 03/20/18 - Subjective Subjective Comment: 03/20/18- Patient resting comfortably in chair with supplemental oxygen. he denies shortness of breath today. No cough, sputum production, fever, chills. He has been up and ambulating with PT and says he did well with that. He did not feel more short of breath with activity. He reports 6/10 pain in his right knee. No swelling in his feet. Objective - Vital Signs Vital Signs: Vital Signs - Last 24 Hrs Temp Pulse Pulse Pulse Resp BP Pulse Ox 03/20/18 10:29 86 24 95 03/20/18 08:55 16 03/20/18 08:48 98.6 F 84 16 134/68 94 L 03/19/18 21:06 98.2 F 81 18 131/68 98 03/19/18 20:07 16 97 03/19/18 19:55 78 18 03/19/18 19:00 97.9 F 78 18 135/63 97 03/19/18 15:44 74 18 142/69 95 - General General Appearance: Alert, Oriented x3, Cooperative, No acute distress - Head Head exam: Normal inspection - Eye Eye exam: Normal appearance, PERRL - Respiratory Respiratory exam: Normal lung sounds bilaterally. negative: Accessory muscle use, Prolonged expiratory, Respiratory distress - Cardiovascular Cardiovascular Exam: Regular rate, Normal rhythm, Normal heart sounds - GI/Abdominal GI/Abdominal exam: Soft, Normal bowel sounds. negative: Tenderness - Extremities Extremities exam: Normal inspection, Full ROM, Normal capillary refill. negative: Tenderness - Neurological Neurological exam: Abnormal gait, Alert, Oriented X3, Reflexes normal - Skin Skin exam: Other (ecchymosis of the left forearm; 2cm in diameter skin tear with healthy underlying granulation tissue; no erythema, warmth, tenderness) Assessment and Plan - Assessment and Plan (1) Encounter for consultation Current Visit: Yes Status: Acute Base Code: Z71.9 - COUNSELING, UNSPECIFIED Comment: 03/20/18- continues to improve. continues on 2L via NC and willl continue to wean off. Has been voiding noramlly since webb removal. BG 57 this am. Patient admits he does not follow ADA diet while at home. held morning insulin but will resume this evening. BP remains controlled. - Dr alston requested inpt consult for pt regarding DM control and other rounding needs. -Post Op day 3 for RTKA -resume lasix 40mg po daily -I&O's -obtain weight daily -nursing staff encouraging ICS and cough/deep breathing -continue to wean off of oxygen as tolerating and plan for discharge to [facility]) Results - Labs Result Diagrams: 03/19/18 06:28 03/20/18 07:50 Labs Last 24 Hours: Laboratory Results - last 24 hr 03/19/18 03/19/18 03/19/18 11:30 17:00 21:29 POC Glucose 144 H 123 H 137 H Random Glucose 03/20/18 03/20/18 03/20/18 07:35 07:50 08:00 POC Glucose 57 L 92 Random Glucose 76 DVT/PE Assessment - Risk for VTE Risk for VTE: No Risk Level: High Risk Assessment Date: 03/18/18 (completed by Dr Alston) Risk Assessment Time: 09:55 (completed by Dr Alston) VTE Orders Placed or Will Be Placed: Yes - Active Medicaitons Current Medications: Current Medications Acetaminophen (Tylenol 325mg) 650 mg PO Q4H PRN PRN Reason: Fever GT 101/Headache Last Admin: 03/20/18 10:15 Dose: 650 mg Acetaminophen/Codeine Phosphate (Tylenol #3) 2 udtab PO Q4H PRN PRN Reason: Pain - Mild to Moderate Acetaminophen/Codeine Phosphate (Acetaminophen-Cod #4 Tablet) 1 udtab PO Q4HR PRN PRN Reason: Pain - Moderate (5-7) Acetaminophen/Codeine Phosphate (Acetaminophen-Cod #4 Tablet) 2 udtab PO Q4HR PRN PRN Reason: Pain - Severe (8-10) Hydrocodone Bitart/Acetaminophen (Steele 10mg/325mg) 2 each PO Q4H PRN PRN Reason: Pain - Mild to Moderate Hydrocodone Bitart/Acetaminophen (Steele 10mg/325mg) 1 each PO Q4H PRN PRN Reason: Pain - Mild to Moderate Al Hydroxide/Mg Hydroxide (Maalox) 30 ml PO Q6H PRN PRN Reason: Indigestion/Heartburn Aspirin (Ecotrin (Ec)) 81 mg PO DAILY [facility] Last Admin: 03/20/18 10:14 Dose: 81 mg Benazepril HCl (Lotensin) 40 mg PO DAILY [facility] Last Admin: 03/20/18 10:13 Dose: 40 mg Bisacodyl (Dulcolax) 10 mg RC DAILY PRN PRN Reason: CONSTIPATION Diphenhydramine HCl (Benadryl Capsule) 50 mg PO Q6H PRN PRN Reason: ITCHING Last Admin: 03/17/18 13:02 Dose: 50 mg Docusate Sodium (Colace) 100 mg PO BID [facility] Last Admin: 03/20/18 10:14 Dose: 100 mg Duloxetine HCl (Cymbalta) 60 mg PO DAILY [facility] Last Admin: 03/20/18 10:15 Dose: 60 mg Duloxetine HCl (Cymbalta) 30 mg PO QHS [facility] Last Admin: 03/19/18 21:12 Dose: 30 mg Ferrous Sulfate (Iron) 325 mg PO DAILY [facility] Last Admin: 03/20/18 10:14 Dose: 325 mg Furosemide (Lasix) 40 mg PO DAILY [facility] Last Admin: 03/20/18 10:16 Dose: 40 mg Hydrochlorothiazide (Hctz 12.5mg) 12.5 mg PO DAILY [facility] Last Admin: 03/20/18 10:14 Dose: 12.5 mg Hydromorphone HCl (Dilaudid) 2 mg IM Q3H PRN PRN Reason: Pain - Severe (8-10) Insulin Detemir (Levemir Flextouch) 35 unit SQ BID [facility] Last Admin: 03/19/18 21:23 Dose: 35 unit Insulin Human Regular (Humulin R) 0 unit SQ TIDAC [facility] PRN Reason: Protocol Last Admin: 03/20/18 07:44 Dose: Not Given Ketorolac Tromethamine (Toradol) 15 mg IVP ONCE PRN PRN Reason: Pain - Moderate (5-7) Magnesium Hydroxide (Milk Of Magnesium) 30 ml PO DAILY PRN PRN Reason: Constipation Metformin HCl (Glucophage Ir) 1,000 mg PO BID [facility] Last Admin: 03/20/18 10:17 Dose: Not Given Metoprolol Tartrate (Lopressor) 100 mg PO BID [facility] Last Admin: 03/20/18 10:16 Dose: 100 mg Naloxone HCl (Narcan) 0.4 mg IVP ONCE PRN PRN Reason: RR less then 8 or unresponsive Ondansetron HCl (Zofran) 4 mg IVP Q4H PRN PRN Reason: NAUSEA Potassium Chloride (Klor-Con) 10 meq PO DAILY [facility] Last Admin: 03/20/18 10:14 Dose: 10 meq Rivaroxaban (Xarelto) 10 mg PO Q24H [facility] Last Admin: 03/20/18 10:21 Dose: 10 mg Simvastatin (Zocor) 40 mg PO QHS [facility] Last Admin: 03/19/18 21:11 Dose: 40 mg Tamsulosin HCl (Flomax) 0.8 mg PO QHS [facility] Last Admin: 03/19/18 21:12 Dose: 0.8 mg Tramadol HCl (Ultram) 100 mg PO Q4H PRN PRN Reason: Pain - Mild to Moderate Last Admin: 03/20/18 10:15 Dose: 100 mg Vitamin D (Vitamin D3) 2,000 unit PO DAILY [facility] Last Admin: 03/20/18 10:13 Dose: 2,000 unit Zolpidem Tartrate (Ambien) 5 mg PO QHS PRN PRN Reason: INSOMNIA AMI Plan - Labs Result Diagrams: 03/19/18 06:28 03/20/18 07:50
[2018-03-20] MEDS: LEVEMIR FLEXTOUCH 100 UNIT/ML INSULIN PEN SQ SCH (13:04)
[2018-03-20] MEDS ORDERED: HUMULIN R 100 UNIT/ML VIAL SC ONE ×2 (14:44)
== END 2018-03-20 14:45 | DRG 470 ==
LOC: MEDSURG 06:55
PROVIDERS: ADMIT Orthopaedic Surgery; ATTEND Orthopaedic Surgery
PROC: 0SRC069 Replacement of Right Knee Joint with Oxidized Zirconium on Polyethylene Synthetic Substitute, Cemented, Open Approach (ICD-10-PCS; principal; 2018-03-17 09:00)
DX: M17.11 Unilateral primary osteoarthritis, right knee (principal); I10 Essential (primary) hypertension
CPT/HCPCS: 36416; 71046; 80048; 82947; 82948; 83880; 85014; 85018; 86850; 86900; 86901; 94760; 94761; 94762; 97110; 97166; 97530; 97535; J1170; J1200; J1885; J1940; J2370; J2405; J3480; J7060

== ENCOUNTER 2018-10-30 09:30 | Inpatient (IN) | payer BC ==
[2018-11-10] MEDS ORDERED: FAMOTIDINE 20MG TABLET PO ONE (06:00)
[2018-11-10] MEDS ORDERED: METOCLOPRAMIDE 10 MG TABLET PO ONE (06:00)
[2018-11-10] MEDS ORDERED: VANCOMYCIN HCL 1,000 MG in DEXTROSE 5 % IN WATER 250 ML IVPB ONE ×2 (06:00)
[2018-11-10] MEDS ORDERED: MECLIZINE 25 MG TABLET PO ONE (06:00)
[2018-11-10] MEDS ORDERED: CEFAZOLIN 2 Gram 2 GM/50 ML BAG IVPB ONE (06:00)
[2018-11-10] MEDS ORDERED: CELECOXIB 100 MG CAPSULE PO ONE (06:00)
[2018-11-10 12:26] LABS: ABO GROUP A; ANTIBODY SCREEN NEGATIVE (NEGATIVE); RH TYPE NEGATIVE
[2018-11-10] MEDS ORDERED: KETOROLAC 30 MG/ML VIAL IVP PRN ×2 (15:24)
[2018-11-10] MEDS ORDERED: ONDANSETRON HCL IV 4 MG/2 ML VIAL IVP PRN (15:24)
[2018-11-10] MEDS ORDERED: DIPHENHYDRAMINE HCL 25 MG CAPSULE PO PRN (15:24)
[2018-11-10] MEDS ORDERED: ACETAMINOPHEN W/ CODEINE 300MG/60MG TABLET PO PRN ×2 (15:24)
[2018-11-10] MEDS ORDERED: MAGNESIUM HYDROXIDE 30 ML UDC PO PRN (15:24)
[2018-11-10] MEDS ORDERED: AL HYDROX/MAG HYDROX 30ML UD PO PRN (15:24)
[2018-11-10] MEDS ORDERED: BISACODYL 10 MG SUPP RC PRN (15:24)
[2018-11-10] MEDS ORDERED: NALOXONE 0.4 MG/1 ML VIAL IVP PRN (15:24)
[2018-11-10] MEDS ORDERED: HYDROMORPHONE HCL 2 MG/ML VIAL IM PRN (15:24)
[2018-11-10] MEDS ORDERED: ZOLPIDEM TARTRATE 5 MG TABLET PO PRN (15:24)
[2018-11-10] MEDS ORDERED: ACETAMINOPHEN 325 MG TAB PO PRN (15:24)
[2018-11-10] MEDS ORDERED: TRAMADOL HCL 50 MG TABLET PO PRN (15:24)
[2018-11-10] MEDS ORDERED: BUPIVACAINE 0.5% W/EPI MPF 30 ML VIAL IVP ONE (16:15)
[2018-11-10] MEDS: HUMULIN R 100 UNIT/ML VIAL SQ SCH (17:40)
[2018-11-10] MEDS: POTASSIUM CHLORIDE/D5-0.9%NACL 20 MEQ/1,000 ML BAG IV SCH ×2 (17:43→22:30)
[2018-11-10] MEDS: HYDROCODONE/APAP 10/325 TABLET PO PRN ×2 (17:45→21:44)
[2018-11-10] MEDS: CEFAZOLIN 2 Gram 2 GM/50 ML BAG IVPB SCH (21:27)
[2018-11-10] MEDS: LANTUS SC SCH (21:38)
[2018-11-10] MEDS: PATIENT OWN MED: DULOXETINE 30 MG PO SCH (21:40)
[2018-11-10] MEDS: DOCUSATE SODIUM 100 MG CAPSULE PO SCH (21:40)
[2018-11-10] MEDS: PATIENT OWN MED: METFORMIN 1000 MG PO SCH (21:42)
[2018-11-10] MEDS: METOPROLOL TARTRATE 100 MG PO SCH (21:42)
[2018-11-10] MEDS: PATIENT OWN MED: TAMSULOSIN 0.4 MG PO SCH (21:43)
[2018-11-10] MEDS: PATIENT OWN MED: PRAVASTATIN 80 MG PO SCH (21:43)
[2018-11-10] MEDS: PATIENT OWN MED: OXYBUTYNIN 5 MG PO SCH ×2 (21:45→21:47)
[2018-11-11] MEDS: POTASSIUM CHLORIDE/D5-0.9%NACL 20 MEQ/1,000 ML BAG IV SCH ×4 (03:00→22:15)
[2018-11-11] MEDS: CEFAZOLIN 2 Gram 2 GM/50 ML BAG IVPB SCH ×2 (05:00→12:49)
[2018-11-11] MEDS: HYDROCODONE/APAP 10/325 TABLET PO PRN ×3 (05:01→18:17)
[2018-11-11 06:35] LABS: HEMATOCRIT 31.5 % (42.0-52.0); HEMOGLOBIN 9.8 gm/dl (14.0-18.0)
[2018-11-11 06:51] LABS: BLOOD UREA NITROGEN 17 mg/dL (8-23); EST GLOMERULAR FILTRATION RATE > 60 mL/min; GLUCOSE,RANDOM 144 mg/dL (74-109)
[2018-11-11] MEDS: HUMULIN R 100 UNIT/ML VIAL SQ SCH ×3 (08:02→17:18)
[2018-11-11] MEDS: BENAZEPRIL 40 MG PO SCH (09:36)
[2018-11-11] MEDS: RIVAROXABAN 10 MG TABLET PO SCH (09:36)
[2018-11-11] MEDS: DOCUSATE SODIUM 100 MG CAPSULE PO SCH ×2 (09:36→22:12)
[2018-11-11] MEDS: ASPIRIN 81 MG TABEC PO SCH (09:36)
[2018-11-11] MEDS: FERROUS SULFATE 325 MG TAB PO SCH (09:36)
[2018-11-11] MEDS: LANTUS SC SCH ×2 (09:39→22:13)
[2018-11-11] MEDS: PATIENT OWN MED: FUROSEMIDE 40 MG PO SCH (09:39)
[2018-11-11] MEDS: PATIENT OWN MED: DULOXETINE 30 MG PO SCH ×2 (09:39→22:12)
[2018-11-11] MEDS: PATIENT OWN MED: METFORMIN 1000 MG PO SCH ×2 (09:39→22:14)
[2018-11-11] MEDS: POTASSIUM CHLORIDE 10 MEQ PO SCH (09:40)
[2018-11-11] MEDS: METOPROLOL TARTRATE 100 MG PO SCH ×2 (09:40→22:14)
--- NOTE | 2018-11-11 11:10 | Rehab Evaluation ---
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 lumbar sx a long time ago bilat CTR c scope PMH - Respiratory Hx Respiratory Disorders Yes Hx Asthma No Hx Bronchitis No Hx Chronic Obstructive No Pulmonary Disease (COPD) Hx Dyspnea No Hx Pneumonia No Hx Pulmonary Embolism No Hx Sleep Apnea Yes Hx Tuberculosis No Hx of CPAP Yes Hx of SOB Yes: with exertion PMH - Cardiovascular Hx Cardiovascular Disorders Yes Hx Abnormal EKG Yes Hx Cardiac Catheterization Yes Hx Chest Pain No Hx Congestive Heart Failure No Hx Deep Vein Thrombosis No Hx Edema Yes: bilat LE Hx Heart Attack No: denies Hx Hypertension Yes: on meds good control Hx Hypotension No Hx Irregular Heartbeat No Hx Palpitations No Hx Pacemaker/Defibrillator No Hx Vascular Disease Yes Hx Coronary Artery Disease Yes Hx Coronary Artery Bypass Yes: triple 2013 Graft Exercise Tolerance Poor Hx Transient Ischemic Attacks No (TIA) PMH - Neuro Hx Neurological Disorders Yes Hx Brain Tumor No Hx Cerebrovascular Accident No Hx Dementia Yes: mild forgetful Hx Dizziness Yes: when standing after sitting Hx Headaches No Hx Neuropathy Yes: LE's Hx Parkinson's Disease No Hx Seizures No Hx Speech Problem No Hx Syncope No Hx Transient Ischemic Attacks No (TIA) Hx Weakness Yes: legs PMH - GI Hx Gastrointestinal Disorders Yes Hx Abdominal Pain No Hx Celiac Disease No Hx Crohn's Disease No Hx Diverticulitis No Hx Gastrointestinal Bleed No Hx Gastroesophageal Reflux No Hx Hepatitis/Jaundice No Hx Hiatal Hernia No Hx Irritable Bowel No Hx Liver Disease No Hx Nausea/Vomiting No Hx Obstructive Bowel No Hx Pancreatitis No Hx Rectal Bleeding No Hx Ulcer No Hx Weight Loss/Weight Gain No PMH - Hx Genitourinary Disorders Yes Hx Bladder Problem Yes: incontinence at night Hx Dialysis No Hx Kidney Stones No Hx Prostate Problems Yes: enlarged Hx Renal Disease No Hx Urinary Tract Infection No PMH - Endocrine Hx Endocrine Disorders Yes Hx Diabetes Yes: onset several years ago started out on orals 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 Comment: 120's - 140's A1C below 7 PMH - Musculoskeletal Hx Musculoskeletal Disorders Yes Hx Arthritis Yes Hx Back Injury No Hx Fibromyalgia No Hx Gout No Hx Musculoskeletal Disease No Hx Osteoporosis No PMH - Psych Hx Psychiatric Problems Yes Hx Anxiety No Hx Behavior Problems No Hx Depression Yes: mild Hx Emotional Abuse No Hx Sexual Abuse No Hx Suicide Attempt No PMH - Hematology/Oncology Hx Hematology/Oncology Yes Disorders Hx Anemia No Hx Blood Disorders No Hx Bruising No Hx Cancer Yes: melanoma right forearm Hx Chemotherapy No Hx Radiation Therapy No Hx Clotting Problems No Hx Sickle Cell Disease No Hx Unexplained Bleeding No Hx Blood Transfusion Reaction No Premorbid Status: Detail (The patient lives with spouse in one story house with one step at the enterance. The patient's bathroom is equipped with a walk in shower with a shower bench, elevated toilet seat . The patient has a standard walker and a standard cane. Per patient's report the patient sleeps in lift chair. The patient had limited mobility prior to surgery due to arthritis in numerous joints.) Precautions: [place], Fall, Other (WBAT on the R LE) - Time With Patient Total Time Spent With Patient (Min): 30 Treatment Procedures: Detail (Initial Evaluation ,gait training) Subjective Information - Subjective Information Per Patient (The patient had complaints of stiffness and R hip pain. The patient did not rate his pain using 0-10 pain scale.) Objective Data - Mental Status Patient Orientation: Oriented x3 (The patient followed simple commands however perservated at times concerning previous Rehab stay and amount of money Rehab cost.) - ROM Not within normal limits (R hip AROM was within THR precautions. All other AROM was WFL.) - Strength/Tone Not within normal limits (The patient's R LE strength was not tested secondary to s/p surgery. The patient functionally had difficulty lifting his R LE out of bed. The patient's L LE strength was functional.) - Bed Mobility Needs Assist (The patient's required moderate PA of 1 for supine to sit and scooting forward in a sitting position.) - Transfers Independent (CG/supervision with sit to stand) - Balance Balance Sitting: Good Balance Standing: Fair (The patient required support of walker to stand.) - Gait Detail (The patient ambulated 11 feet x 1 WBAT on the R LE with CG of 1 for safety. The patient had difficulty ambulating within walker and difficulty lifting walker.) Therapy Assessment - Therapy Assessment Detail (The patient required assistance with mobility and required CG for safety due to unsteady gait. Feel the patient would benefit from a subacute Rehab stay to improve functional mobility. [facility] special education case manager was contacted and will talk to patient.) Patient Education - Patient Education Teaching Topic: Exercise/Activity (The patient's HEP was reviewed including gluteal sets, quad sets, hamstring sets, ankle pumps and hip abduction. The patient required verbal cues to complete correctly.), Precautions (The patient followed THR precautions but required verbal cues to recall the precautions.) Response: Return Demonstration Teaching Method: Handout Teaching Recipient: Patient Barriers To Learning: Age Related Problem List - Problem List Physical Therapy Problem List: Detail (1) Assistance with mobility and ambulation 2) Decreased R LE strength. 3) Unsteadiness with gait pattern 4) Non ambulatory on stairs) Goals - Goals Physical Therapy Goals: 1) The patient will ambulate 40 feet with appropriate assistive device with supervison for safety. 2) The patient will ambulate on one step with supervision for safety. 3) The patient will be independent with all transfers Prognosis - Prognosis Good Plan - Plan Physical Therapy Plan: PT 1 to 2 times a day for gait training, transfer training, bed mobility and THR exercises. Subacute Rehab is recommended upon discharge from [facility].
[2018-11-11] MEDS ORDERED: LIDOCAINE 2% MDV (20MG/ML) 20ML VIAL IV ONE (11:24)
[2018-11-11] MEDS ORDERED: MIDAZOLAM HCL 2MG/2ML VIAL IV ONE (11:24)
[2018-11-11] MEDS ORDERED: KETAMINE HCL 100MG/1ML VIAL INJ ONE (11:24)
[2018-11-11] MEDS ORDERED: PROPOFOL 10 MG/ML VIAL IV ONE (11:24)
--- NOTE | 2018-11-11 11:47 | Rehab Evaluation ---
Patient Information - Patient Information Diagnosis: OA R hip Ordered Treatment: OT Evaluate and Treat Status: Initial Evaluation Surgery: Yes (THR R) Date of Surgery: 11/10/18 Past Medical/Surgical Hx: PAST MEDICAL/SURGICAL HISTORY Past Surgical History RTKA 03-17-18 bilat cats triple bypass cardiac 2013 left RTC repair left shoulder replacement 2013 melenoma right forearm lumbar sx a long time ago bilat CTR c scope PMH - Respiratory Hx Respiratory Disorders Yes Hx Asthma No Hx Bronchitis No Hx Chronic Obstructive No Pulmonary Disease (COPD) Hx Dyspnea No Hx Pneumonia No Hx Pulmonary Embolism No Hx Sleep Apnea Yes Hx Tuberculosis No Hx of CPAP Yes Hx of SOB Yes: with exertion PMH - Cardiovascular Hx Cardiovascular Disorders Yes Hx Abnormal EKG Yes Hx Cardiac Catheterization Yes Hx Chest Pain No Hx Congestive Heart Failure No Hx Deep Vein Thrombosis No Hx Edema Yes: bilat LE Hx Heart Attack No: denies Hx Hypertension Yes: on meds good control Hx Hypotension No Hx Irregular Heartbeat No Hx Palpitations No Hx Pacemaker/Defibrillator No Hx Vascular Disease Yes Hx Coronary Artery Disease Yes Hx Coronary Artery Bypass Yes: triple 2013 Graft Exercise Tolerance Poor Hx Transient Ischemic Attacks No (TIA) PMH - Neuro Hx Neurological Disorders Yes Hx Brain Tumor No Hx Cerebrovascular Accident No Hx Dementia Yes: mild forgetful Hx Dizziness Yes: when standing after sitting Hx Headaches No Hx Neuropathy Yes: LE's Hx Parkinson's Disease No Hx Seizures No Hx Speech Problem No Hx Syncope No Hx Transient Ischemic Attacks No (TIA) Hx Weakness Yes: legs PMH - GI Hx Gastrointestinal Disorders Yes Hx Abdominal Pain No Hx Celiac Disease No Hx Crohn's Disease No Hx Diverticulitis No Hx Gastrointestinal Bleed No Hx Gastroesophageal Reflux No Hx Hepatitis/Jaundice No Hx Hiatal Hernia No Hx Irritable Bowel No Hx Liver Disease No Hx Nausea/Vomiting No Hx Obstructive Bowel No Hx Pancreatitis No Hx Rectal Bleeding No Hx Ulcer No Hx Weight Loss/Weight Gain No PMH - Hx Genitourinary Disorders Yes Hx Bladder Problem Yes: incontinence at night Hx Dialysis No Hx Kidney Stones No Hx Prostate Problems Yes: enlarged Hx Renal Disease No Hx Urinary Tract Infection No PMH - Endocrine Hx Endocrine Disorders Yes Hx Diabetes Yes: onset several years ago started out on orals 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 Comment: 120's - 140's A1C below 7 PMH - Musculoskeletal Hx Musculoskeletal Disorders Yes Hx Arthritis Yes Hx Back Injury No Hx Fibromyalgia No Hx Gout No Hx Musculoskeletal Disease No Hx Osteoporosis No PMH - Psych Hx Psychiatric Problems Yes Hx Anxiety No Hx Behavior Problems No Hx Depression Yes: mild Hx Emotional Abuse No Hx Sexual Abuse No Hx Suicide Attempt No PMH - Hematology/Oncology Hx Hematology/Oncology Yes Disorders Hx Anemia No Hx Blood Disorders No Hx Bruising No Hx Cancer Yes: melanoma right forearm Hx Chemotherapy No Hx Radiation Therapy No Hx Clotting Problems No Hx Sickle Cell Disease No Hx Unexplained Bleeding No Hx Blood Transfusion Reaction No Premorbid Status: Detail (The patient lives with spouse in one story house with one step and one railing at the entrance. The patient's bathroom is equipped with a walk in shower with a shower bench, a walk in tub and an elevated toilet seat . The patient has a standard walker and a standard cane as well as several reachers. Per patient's the patient sleeps in lift chair. The patient had limited mobility prior to surgery due to arthritis in numerous joints. Spouse is generally responsible for home mgmt, meal prep and laundry.) Precautions: [place], Fall, Other (WBAT on the R LE, total hip precautions) - Time With Patient Total Time Spent With Patient (Min): 50 Treatment Procedures: Detail (OT eval low complexity) Subjective Information - Subjective Information Per Patient Objective Data - Pain Pain Present: Yes (04/09) - Mental Status Patient Orientation: Oriented x3 - Visual Perception Appears within normal limits for therapeutic activities - ROM Not within normal limits (Jason shoulder flexion limited to approx. 90 degrees due to longstanding arthritis. Jason elbow, wrist and hand AROM WNL.) - Strength/Tone Not within normal limits (Jason shoulder flexion 3-/5 due to stiffness and arthritis, jason elbow and hand strength 4/5.) - Coordination Appears within normal limits for therapeutic activities - Bed Mobility Needs Assist (Mod assist for supine to sit.) - Transfers Needs Assist (Min assist for sit to stand from EOB to walker.) - Balance Balance Sitting: Good Balance Standing: Fair - Sensation Intact - Gait Detail (Pt ambulating very short distances with 2 wheeled walker and CG assist.) - ADL's/IADL's Detail (Reviewed total hip precautions and modified LE dressing techniques. reports she typically would assist pt if needed especially with socks and shoes. Pt was able to don briefs and sweatpants with lay out helper and min assist to start over feet as well as moderate verbal cueing. Did not attempt socks and shoes as pt was very fatigued.) Therapy Assessment - Therapy Assessment Detail (Pt requires assist for modified LE dressing techniques, he presents with significantly decreased endurance with self care and mobility tasks.) Problem List - Problem List Physical Therapy Problem List: Detail (1) Assistance with mobility and ambulation 2) Decreased R LE strength. 3) Unsteadiness with gait pattern 4) Non ambulatory on stairs) Occupational Therapy Problem List: Detail (1. Decreased Ind with LE dressing. 2. Decreased activity tolerance needed for safe and Ind self cares. 3. Decreased functional mobility) Goals - Goals Physical Therapy Goals: 1) The patient will ambulate 40 feet with appropriate assistive device with supervison for safety. 2) The patient will ambulate on one step with supervision for safety. 3) The patient will be independent with all transfers Occupational Therapy Goals: 1. Pt will be safe and Ind with modified LE dressing techniques using adaptive equipment. 2. Pt will demonstrate improved endurance needed for ADLs. 3. Pt will be Ind with bed mobility and sit to stand transfers. Prognosis - Prognosis Good Plan - Plan Physical Therapy Plan: PT 1 to 2 times a day for gait training, transfer training, bed mobility and THR exercises. Subacute Rehab is recommended upon discharge from [facility]. Occupational Therapy Plan: OT will continue 1-2 visits until discharge. Recommend short IP rehab stay to maximize safety and Ind with self cares.
--- NOTE | 2018-11-11 15:20 | Operative Note ---
DATE OF SURGERY: 11/10/2018 PREOPERATIVE DIAGNOSIS: End-stage arthrosis of the right hip. POSTOPERATIVE DIAGNOSIS: End-stage arthrosis of the right hip. OPERATION: Cementless right total hip arthroplasty using [employer] components with a size 60 no-hole Reflection cup, 32 mm diameter 35-degree offset liner, a size 14 high-offset cementless [place]ais stem with a +4 32 mm diameter cobalt chrome head. Staff Surgeon: Margarito Alston MD Anesthesia: Spinal. PREPARATION: Chloraprep. INDIVIDUAL CONSIDERATIONS: None. PROCEDURE: The patient was taken to the operating room, placed supine on the operating room table. He had a successful induction of spinal anesthetic. He was then placed on his side right side up and his right leg and hip were prepped and draped in the usual fashion. The patient had direct posterior approach to the hip. Sharp dissection carried down through skin and subcutaneous tissues. Small veins were coagulated with a Bovie. The tensor gluteal fascia was opened along the entire length of the incision, and deep retractors were placed. Short external rotators were identified, piriformis fossa removed exposing the posterior capsule. Posterior capsulectomy was performed. Hip was dislocated posteriorly. The patient had huge osteophytes on the head with marked deformity. A femoral neck cut was made about a fingerbreadth above the less trochanter using oscillating saw. I then did a rim capsulectomy, removed loose bodies, and removed posterior wall osteophytes with a Rongeur. Starting with a 49 mm reamer to medialize, I reamed to the introitus, which was a 59 for a size 60 cup. I slightly under-reamed to 60. I had a decent bleeding bony bed for the socket. After irrigation, I impacted a size 60 no-hole Reflection cup in 20 degrees of forward flexion and 40 degrees of abduction using the extraarticular alignment guide and bony landmarks. There was absolutely solid cementless fixation. After irrigation, I placed a center cap screw and then impacted the liner which was 35-degree peters with the offset posteriorly to slightly inferiorly. This gave an excellent stable acetabular construct, and this was packed off. The proximal femur was delivered into the wound, and box cutting osteotome was used to remove the proximal metaphyseal bone. Mid stem reaming was done to a size 14. I barely started feeling cortex at maybe 12. I then broached to the size 14. I dialed anteversion into about 20 degrees, which was the most I could get given his natural angle was less than that. After calcar reaming, I found that with a +4 high-offset, there was excellent stability. I removed the trial, irrigated out completely, and then impacted a size 14 high-offset [place] stem with solid cementless fixation and solid calcar contact. I trialed again with a +4, irrigated it all off, dried the Hernandez taper, impacted a +4 32 mm diameter cobalt chrome head on the Hernandez taper, reduced the hip. I had solid stability, full anterior stability in extension and external rotation. I actually had full flexion stability. I flexed him up to his pedunculus and internally rotated limited by soft tissue and still had stability. Sciatic nerve was inspected and found to be completely intact. After irrigation, hemostasis was obtained with a Bovie. I then placed 1 g of tranexamic acid mixed with 30 mL of saline deep to the fascia. He did receive 1 g of tranexamic acid IV preoperatively. The tensor gluteal fascia was closed with a running #2 quill, subcu was closed in layers with running 0 quill, skin was closed with carlo. Skin was then infiltrated 30 mL of 0.5% Marcaine with epinephrine, and a sterile bulky compressive MARNIE-type dressing was applied. The patient tolerated the procedure well. Needle and sponge counts were correct. Estimated blood loss was about 500 mL. We will check hemoglobin in the morning. There were no complications. CC: Dr. Fei OLMEDO
--- NOTE | 2018-11-11 15:52 | Physical Therapy Tx Note ---
Physical Therapy Tx Note - Treatment Note Tolerated: Good Total Time Spent With Patient: 15 Physical Therapy Tx Note: Detail (The patient was in bed when PT arrived. The patient required min/mod PA with supine to sit transfer. The patient acheived sit to stand from high surface with CG of 1. The patient ambulated 22 feet x 1 with CG of 1 WBAT on the R LE. The patient ambulated with walker to far ahead and wide base of support. The patient was left up in chair with present. Nursing staff was notified.) Physical Therapy Problem List: Detail (1) Assistance with mobility and ambulation 2) Decreased R LE strength. 3) Unsteadiness with gait pattern 4) Non ambulatory on stairs) Physical Therapy Goals: 1) The patient will ambulate 40 feet with appropriate assistive device with supervison for safety. 2) The patient will ambulate on one step with supervision for safety. 3) The patient will be independent with all transfers Physical Therapy Plan: PT 1 to 2 times a day for gait training, transfer training, bed mobility and THR exercises. Subacute Rehab is recommended upon discharge from [facility].
[2018-11-11] MEDS: PATIENT OWN MED: OXYBUTYNIN 5 MG PO SCH (22:14)
[2018-11-11] MEDS: PATIENT OWN MED: PRAVASTATIN 80 MG PO SCH (22:14)
[2018-11-11] MEDS: PATIENT OWN MED: TAMSULOSIN 0.4 MG PO SCH (22:15)
[2018-11-12] MEDS: HYDROCODONE/APAP 10/325 TABLET PO PRN ×2 (04:12→18:24)
[2018-11-12 06:56] LABS: HEMATOCRIT 32.6 % (42.0-52.0); HEMOGLOBIN 10.1 gm/dl (14.0-18.0)
[2018-11-12 07:06] LABS: BLOOD UREA NITROGEN 17 mg/dL (8-23); EST GLOMERULAR FILTRATION RATE > 60 mL/min; GLUCOSE,RANDOM 124 mg/dL (74-109)
--- NOTE | 2018-11-12 07:22 | RADIOLOGY REPORT ---
EXAM: CHEST, SINGLE VIEW HISTORY: REHAB FACILITY PLACEMENT. TECHNIQUE: A single portable frontal view of the chest was obtained. Comparison: Chest radiograph 03/18/18. FINDINGS: The cardiomediastinal silhouette is enlarged and similar from prior study. Postoperative changes of the mediastinum. The thoracic aorta is calcified and tortuous. Asymmetric elevation of the right hemidiaphragm. Prominent central pulmonary vasculature appearing similar from comparison study. No definite new focal pulmonary opacities. Suggestion of bibasilar atelectasis. No definable pleural fluid collection or visible pneumothorax. Right shoulder degenerative changes are seen. IMPRESSION: 1. CARDIOMEDIASTINAL SILHOUETTE ENLARGEMENT AND PULMONARY VASCULAR CONGESTION. OVERALL SIMILAR IN APPEARANCE FROM 03/18/18 COMPARISON. 2. NO DEFINITE NEW/ACUTE LUNG FINDINGS. JOB NUMBER: [id number] MTDD
[2018-11-12] MEDS: HUMULIN R 100 UNIT/ML VIAL SQ SCH ×3 (08:05→17:51)
[2018-11-12] MEDS: DOCUSATE SODIUM 100 MG CAPSULE PO SCH ×2 (09:57→21:52)
[2018-11-12] MEDS: PATIENT OWN MED: FUROSEMIDE 40 MG PO SCH (09:58)
[2018-11-12] MEDS: PATIENT OWN MED: DULOXETINE 30 MG PO SCH ×2 (09:58→21:53)
[2018-11-12] MEDS: ASPIRIN 81 MG TABEC PO SCH (09:58)
[2018-11-12] MEDS: FERROUS SULFATE 325 MG TAB PO SCH (09:58)
[2018-11-12] MEDS: BENAZEPRIL 40 MG PO SCH (09:58)
[2018-11-12] MEDS: METOPROLOL TARTRATE 100 MG PO SCH ×2 (09:59→21:55)
[2018-11-12] MEDS: POTASSIUM CHLORIDE 10 MEQ PO SCH (09:59)
[2018-11-12] MEDS: PATIENT OWN MED: METFORMIN 1000 MG PO SCH ×2 (09:59→21:54)
[2018-11-12] MEDS: LANTUS SC SCH ×2 (09:59→21:50)
[2018-11-12] MEDS: RIVAROXABAN 10 MG TABLET PO SCH (10:00)
--- NOTE | 2018-11-12 10:59 | Physical Therapy Tx Note ---
Physical Therapy Tx Note - Treatment Note Tolerated: Good Total Time Spent With Patient: 30 Physical Therapy Tx Note: Detail (Patient was supine in bed at start of session. Pt performed sup>sit transfer using bed rails and trapeze and mod Ax2 for RLE movement, and trunk support. Pt performed sit<>stand with RW, bed elevated, and mod Ax1 for steadying and safety. Pt required verbal and tactile cues with all transfers for hand placement and technique. Pt ambulated 20' using RW and min A for steadying and safety. Pt amb with increased B hip flexion , wide JOHNNY, L hip externally rotated, and increased time to complete. Pt performed toilet transfer with grab bars and mod A for steadying. Pt stood x5 min using RW and min A for safety to assist with hygene. Pt without loss of balance throughout session. Pt left seated in bedside recliner with needs met, and call light within reach.) Physical Therapy Problem List: Detail (1) Assistance with mobility and ambulation 2) Decreased R LE strength. 3) Unsteadiness with gait pattern 4) Non ambulatory on stairs) Physical Therapy Goals: 1) The patient will ambulate 40 feet with appropriate assistive device with supervison for safety. 2) The patient will ambulate on one step with supervision for safety. 3) The patient will be independent with all transfers Prognosis: Good Physical Therapy Plan: PT 1 to 2 times a day for gait training, transfer training, bed mobility and THR exercises. Subacute Rehab is recommended upon discharge from [facility].
--- NOTE | 2018-11-12 14:40 | Physical Therapy Tx Note ---
Physical Therapy Tx Note - Treatment Note Tolerated: Good Total Time Spent With Patient: 30 Physical Therapy Tx Note: Detail (Pt was seated in bedside recliner at start of session. Pt's attended session. Pt performed bilateral seated marches, LAQ , glute sets and ankle pumps x10 each. Pt performed sit<>stand with RW and mod A for balance and steadying. Pt required verbal and tactile cues for hand placement and technique. Pt amb 50' with min A for steadying, and verbal cuing for posture, and RW technique. Pt was provided with a larger RW to improve gait mechanics. Pt amb with increased B hip flexion, increased thoracic kyposis, and decreased B step length. Pt was left in bedside chair with needs met, call light within reach, and attending to pt.) Physical Therapy Problem List: Detail (1) Assistance with mobility and ambulation 2) Decreased R LE strength. 3) Unsteadiness with gait pattern 4) Non ambulatory on stairs) Physical Therapy Goals: 1) The patient will ambulate 40 feet with appropriate assistive device with supervison for safety. 2) The patient will ambulate on one step with supervision for safety. 3) The patient will be independent with all transfers Prognosis: Good Physical Therapy Plan: PT 1 to 2 times a day for gait training, transfer training, bed mobility and THR exercises. Subacute Rehab is recommended upon discharge from [facility].
--- NOTE | 2018-11-12 19:59 | Discharge Summary ---
DATE OF ADMISSION: 11/10/2018 DATE OF DISCHARGE: 11/12/2018 DATE OF SURGERY: 11/10/2018 HISTORY: Mr. Gudino is a delightful 78-year-old male who presents with profound end-stage arthrosis of his right hip. He was admitted after a right total hip arthroplasty. Postoperatively, he did great. His hospital course was unremarkable. Discharge hemoglobin was 10.1. DISCHARGE INSTRUCTIONS: The plan is to transfer him to rehab. He will be given an additional two more doses of Xarelto for DVT prophylaxis for a total of five doses postoperatively. Then, he should take a regular Aspirin daily for 30 days and then after than he can resume his Baby Aspirin regimen. He will be given [place] for pain. Sutures should be removed at the extended care facility two weeks postoperatively. He should follow-up in my office in four weeks. FINAL DIAGNOSIS/PRIMARY DIAGNOSIS: END-STAGE ARTHROSIS OF THE RIGHT HIP. SECONDARY DIAGNOSIS: ACUTE OPERATIVE BLOOD LOSS ANEMIA. OPERATIONS AND PROCEDURES: CEMENTLESS RIGHT TOTAL HIP ARTHROPLASTY. JOB NUMBER: [id number] MTDD
[2018-11-12] MEDS: PATIENT OWN MED: OXYBUTYNIN 5 MG PO SCH (21:55)
[2018-11-12] MEDS: PATIENT OWN MED: PRAVASTATIN 80 MG PO SCH (21:56)
[2018-11-12] MEDS: PATIENT OWN MED: TAMSULOSIN 0.4 MG PO SCH (21:57)
[2018-11-13] MEDS: HYDROCODONE/APAP 10/325 TABLET PO PRN ×2 (07:12→14:52)
[2018-11-13] MEDS: HUMULIN R 100 UNIT/ML VIAL SQ SCH ×2 (09:24→12:04)
[2018-11-13] MEDS: RIVAROXABAN 10 MG TABLET PO SCH (09:33)
[2018-11-13] MEDS: DOCUSATE SODIUM 100 MG CAPSULE PO SCH (09:33)
[2018-11-13] MEDS: ASPIRIN 81 MG TABEC PO SCH (09:33)
[2018-11-13] MEDS: FERROUS SULFATE 325 MG TAB PO SCH (09:33)
--- NOTE | 2018-11-13 09:40 | Occupational Therapy Tx Note ---
Occupational Therapy Tx Note - Treatment Note Tolerated: Fair (Participated well, req'd multiple rest breaks and exhibited SOB ) Total Time Spent With Patient: 20 Occupational Therapy Treatment Note: Detail (Min A required to transition from reclined position in arm chair to seated position, including lifting/holding effected extremity. SBA to dress LB using production machine operator while seated in arm chair; donned sweatpants and t-shirt with mod VC, educ. provided in adaptive dressing techniques. Req'd rest break after donning t-shirt, prior to donning pants. Min A x2 sit>stand t/f to walker from arm chair with mod VC's. CGA functional mobility to bathroom and SBA to sit on 3-in-1 commode with handrails. Pt. req'd seated rest break and exhibited SOB (approx. 10 feet). Pt. stated he did not need to use the toilet at this time, but did require assistance to place urinal in all previous instances. Session was concluded with pt. seated in chair with call light and bedside tray within reach; educ. was provided in use of call light and to call and wait for assistance before getting up. A: Pt. presents with significant impairment in activity tolerance and functional ambulation of household distances, becoming SOB quickly and requiring seated rest breaks often. Pt requires mod VC's for dressing with adaptive equipment, and SBA to Min A to decrease fall risk with transfers and functional mobility. Pt. sometimes exhibits impaired safety judgement and impulsivity, which causes increased fall risk and safety concerns. P: cont. POC until goals are met or pt. is d/c.) Occupational Therapy Problem List: Detail (1. Decreased Ind with LE dressing. 2. Decreased activity tolerance needed for safe and Ind self cares. 3. Decreased functional mobility) Occupational Therapy Goals: 1. Pt will be safe and Ind with modified LE dressing techniques using adaptive equipment. 2. Pt will demonstrate improved endurance needed for ADLs. 3. Pt will be Ind with bed mobility and sit to stand transfers. Prognosis: Good (Good for above OT goals.) Occupational Therapy Plan: OT will continue 1-2 visits until discharge. Recommend short IP rehab stay to maximize safety and Ind with self cares.
--- NOTE | 2018-11-13 09:44 | Physical Therapy Tx Note ---
Physical Therapy Tx Note - Treatment Note Tolerated: Good Total Time Spent With Patient: 20 Physical Therapy Tx Note: Detail (The patient was up in chair when PT arrived. The patient achieved sit to stand with minimal PA of 2 from chair and was supervision for safety only from raised toilet sit. The patient is able to acheive supine to sit with verbal cues and supervision for safety only with slow movements. The patient ambulated with front wheeled walker a distance of 40 feet x 1 with CG/supervision for safety . Patient continues to exhibit shortness of breath with ambulation but symptoms are less then initially. Overall the patient is requiring less assistance with mobility and progressing well with mobility. The patient continues to require verbal cueing and supervision for safety with all mobility and ambulation.) Physical Therapy Problem List: Detail (1) Assistance with mobility and ambulation 2) Decreased R LE strength. 3) Unsteadiness with gait pattern 4) Non ambulatory on stairs) Physical Therapy Goals: 1) The patient will ambulate 40 feet with appropriate assistive device with supervison for safety. 2) The patient will ambulate on one step with supervision for safety. 3) The patient will be independent with all transfers Physical Therapy Plan: PT 1 to 2 times a day for gait training, transfer training, bed mobility and THR exercises. Subacute Rehab is recommended upon discharge from [facility].
[2018-11-13] MEDS: PATIENT OWN MED: DULOXETINE 30 MG PO SCH (09:48)
[2018-11-13] MEDS: BENAZEPRIL 40 MG PO SCH (09:49)
[2018-11-13] MEDS: PATIENT OWN MED: FUROSEMIDE 40 MG PO SCH (09:49)
[2018-11-13] MEDS: LANTUS SC SCH (09:50)
[2018-11-13] MEDS: PATIENT OWN MED: METFORMIN 1000 MG PO SCH (09:52)
[2018-11-13] MEDS: METOPROLOL TARTRATE 100 MG PO SCH (09:54)
[2018-11-13] MEDS: POTASSIUM CHLORIDE 10 MEQ PO SCH (09:55)
== END 2018-11-13 15:40 | DRG 470 ==
LOC: MEDSURG 11-10 10:33
PROVIDERS: ADMIT Orthopaedic Surgery; ATTEND Orthopaedic Surgery
PROC: 0SR906A Replacement of Right Hip Joint with Oxidized Zirconium on Polyethylene Synthetic Substitute, Uncemented, Open Approach (ICD-10-PCS; principal; 2018-11-10 13:00)
DX: M16.11 Unilateral primary osteoarthritis, right hip (principal); E11.9 Type 2 diabetes mellitus without complications; Z79.4 Long term (current) use of insulin; Z79.84 Long term (current) use of oral hypoglycemic drugs; I10 Essential (primary) hypertension; E78.5 Hyperlipidemia, unspecified; Z95.1 Presence of aortocoronary bypass graft
CPT/HCPCS: 36416; 71045; 80048; 82948; 85014; 85018; 86850; 86900; 86901; 97110; 97530; 97535; J3480; J3490; J7060